=== PATIENT | male | born 1930 | race Caucasian/White ===

== ENCOUNTER 2017-10-03 22:05 | Emergency (ER) | payer OTHER, MEDICARE ==
[2017-10-03 22:15] VITALS: BMI 26.5
--- NOTE | 2017-10-03 22:24 | PDOC ---
History of Present Illness - General History Source: Patient, Spouse Exam Limitations: No Limitations - History of Present Illness Initial Comments: 10/03/17 22:42 The patient is an 86 year old male, accompanied by , with a past medical history HTN, CVA, mild dementia, and osteoarthritis, who presents to the ED today s/p unwitnessed mechanical fall. The patient was in the same room as his when he tripped and fell. As per , the patient was awake when she tended to his care but was unable to get up under his own strength. He states that he hit his head on the fall but denies nausea, vomiting , LOC, dizziness. He endorses taking aspirin, generalized left sided pain and right elbow pain. <Chance Valdez - Last Filed: 10/04/17 01:08> <Rob Flor - Last Filed: 10/04/17 01:41> - General Chief Complaint: Injury Stated Complaint: FALL Past History 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 History Cardiac Disorders: Yes CVA: Yes COPD: No HTN: Yes Other medical history: arthrtis, enlarged prostate - Surgical History Appendectomy: Yes - Suicide/Smoking/Psychosocial Hx Smoking History: Never smoked Have you smoked in the past 12 months: No Information on smoking cessation initiated: No Hx Alcohol Use: No Drug/Substance Use Hx: No Substance Use Type: None <Rob Flor - Last Filed: 10/04/17 01:41> Review of Systems - Review of Systems Able to Perform ROS?: Yes Comments:: 10/03/17 22:42 GENERAL/CONSTITUTIONAL: No fever or chills. (+) Weakness. HEAD, EYES, EARS, NOSE AND THROAT: No change in vision. No ear pain or discharge. No sore throat. CARDIOVASCULAR: No chest pain or shortness of breath. RESPIRATORY: No cough, wheezing, or hemoptysis. GASTROINTESTINAL: No nausea, vomiting, diarrhea or constipation. GENITOURINARY: No dysuria, frequency, or change in urination. MUSCULOSKELETAL: (+) Right elbow pain, left sided pain. No neck or back pain. SKIN: No rash NEUROLOGIC: No headache, vertigo, loss of consciousness, or change in strength/ sensation. ENDOCRINE: No increased thirst. No abnormal weight change. HEMATOLOGIC/LYMPHATIC: No anemia, easy bleeding, or history of blood clots. ALLERGIC/IMMUNOLOGIC: No hives or skin allergy. <Chance Valdez - Last Filed: 10/04/17 01:08> *Physical Exam - Vital Signs Last Vital Signs Temp Pulse Resp BP Pulse Ox 98.1 F 74 18 165/75 100 10/03/17 22:12 10/03/17 22:12 10/03/17 22:12 10/03/17 22:12 10/03/17 22:12 - Physical Exam Comments: 10/03/17 22:42 GENERAL: Awake, alert, and fully oriented, in no acute distress HEAD: No signs of trauma EYES: PERRLA, EOMI, sclera anicteric, conjunctiva clear ENT: Auricles normal inspection, hearing grossly normal, nares patent, oropharynx clear without exudates. Dry oral mucosa NECK: Normal ROM, supple, no lymphadenopathy, JVD, or masses LUNGS: Breath sounds equal, clear to auscultation bilaterally. No wheezes, and no crackles HEART: Regular rate and rhythm, normal S1 and S2, no murmurs, rubs or gallops ABDOMEN: Soft, nontender, normoactive bowel sounds. No guarding, no rebound. No masses EXTREMITIES: Normal range of motion, no edema. No clubbing or cyanosis. No cords, erythema, or tenderness NEUROLOGICAL: Cranial nerves II through XII grossly intact. Normal speech, normal gait SKIN: Warm, Dry, normal turgor, no rashes or lesions noted. <Chance Valdez - Last Filed: 10/04/17 01:08> - Vital Signs Last Vital Signs Temp Pulse Resp BP Pulse Ox 98.1 F 74 18 165/75 100 10/03/17 22:12 10/03/17 22:12 10/03/17 22:12 10/03/17 22:12 10/03/17 22:12 <Rob Flor - Last Filed: 10/04/17 01:41> Heart Score/ECG Review - ECG Impressions Comment:: 10/03/17 23:28 Normal sinus rhythm. Cannot rule out inferior infarct, age undetermined. Abnormal ECG. <Chance Valdez - Last Filed: 10/04/17 01:08> Medical Decision Making - Medical Decision Making 10/04/17 01:09 Further care of this patient endorsed to Dr. Russo. <Chance Valdez - Last Filed: 10/04/17 01:08> *DC/Admit/Observation/Transfer - Attestations Scribe Attestion: 10/03/17 22:42 Documentation prepared by Chance Valdez, acting as medical coding manager for Rob Flor DO. <Chance Valdez - Last Filed: 10/04/17 01:08> - Attestations Physician Attestion: 10/03/17 22:24 I, Dr. Rob Flor, attest that this document has been prepared under my direction and personally reviewed by me in its entirety. I further attest, that it accurately reflects all work, treatment, procedures and medical decision -making performed by me. <Rob Flor - Last Filed: 10/04/17 01:41> Diagnosis at time of Disposition: Fall Qualifiers: Encounter type: initial encounter Qualified Code(s): W19.XXXA - Unspecified fall, initial encounter - Referrals Referrals: Malissa Seaman MD [Primary Care Provider] -
[2017-10-03] MEDS ORDERED: SODIUM CHLORIDE 1,000 ML IV STA (22:38)
[2017-10-04 02:00] VITALS: BP 163/76; PULSE 64; TEMP 98.6
[2017-10-04 02:11] LABS: BASO % 0.5 % (0-2.0); EOS % 0.8 % (0-4.5); HEMATOCRIT 42.7 % (35.4-49); HEMOGLOBIN 14.2 GM/dL (11.7-16.9); MCHC 33.2 g/dl (32.0-35.9); MEAN CELL VOLUME 93.3 fl (80-96); MEAN PLT VOLUME 8.3 fl (7.5-11.1); MONO % 10.7 % (3.8-10.2); PLATELET COUNT 157 K/MM3 (134-434); RBC 4.57 M/mm3 (4.00-5.60); RDW 14.5 % (11.9-15.9); WHITE BLOOD COUNT 9.6 K/mm3 (4.0-10.0)
[2017-10-04 02:13] LABS: URINE APPEARANCE CLEAR; URINE BILIRUBIN NEGATIVE (NEGATIVE); URINE BLOOD 1+ (NEGATIVE); URINE COLOR STRAW; URINE GLUCOSE (UA) NEGATIVE (NEGATIVE); URINE KETONE TRACE (NEGATIVE); URINE LEUK ESTERASE NEGATIVE (NEGATIVE); URINE NITRITE NEGATIVE (NEGATIVE); URINE UROBILINOGEN NEGATIVE mg/dL (0.2-1.0)
[2017-10-04 02:18] LABS: URINE PROTEIN 2+ (NEGATIVE)
[2017-10-04 02:21] LABS: EPI CELLS RARE /HPF (FEW)
[2017-10-04 02:23] LABS: INR 1.04 (0.82-1.09); PROTHROMBIN TIME (PATIENT) 11.8 SEC (9.98-11.88)
[2017-10-04 02:38] LABS: ANION GAP 7 (8-16); BILIRUBIN,TOTAL 0.6 mg/dL (0.2-1.0); BLOOD UREA NITROGEN 23 mg/dL (7-18); CALCIUM 8.9 mg/dL (8.5-10.1); CHLORIDE 103 mmol/L (98-107); CO2 29 mmol/L (21-32); CREATININE 1.3 mg/dL (0.7-1.3); GLUCOSE,RANDOM 103 mg/dL (74-106); POTASSIUM 3.9 mmol/L (3.5-5.1); SGOT/AST 30 U/L (15-37); SGPT/ALT 30 U/L (12-78); SODIUM 139 mmol/L (136-145); TOT PROT 6.9 g/dl (6.4-8.2)
[2017-10-04 02:42] LABS: ALK PHOS 117 U/L (45-117); N-TERMINAL BNP 551.59 pg/ml (5-450)
--- NOTE | 2017-10-04 03:27 | PDOC ---
*Physical Exam - Vital Signs Last Vital Signs Temp Pulse Resp BP Pulse Ox 98.6 F 64 20 163/76 93 L 10/04/17 01:59 10/04/17 01:59 10/04/17 01:59 10/04/17 01:59 10/04/17 01:59 ED Treatment Course - LABORATORY CBC & Chemistry Diagram: 10/04/17 02:00 10/04/17 02:00 - ADDITIONAL ORDERS Additional order review: Laboratory Results 10/04/17 10/04/17 10/04/17 02:00 02:00 02:00 PT with INR 11.80 INR 1.04 Sodium 139 Potassium 3.9 Chloride 103 Carbon Dioxide 29 Anion Gap 7 L BUN 23 H Creatinine 1.3 Creat Clearance w eGFR 52.59 Random Glucose 103 Calcium 8.9 Total Bilirubin 0.6 AST 30 ALT 30 Alkaline Phosphatase 117 Creatine Kinase 120 Troponin I 0.02 B-Natriuretic Peptide 551.59 H Total Protein 6.9 Albumin 3.0 L Urine Color Straw Urine Appearance Clear Urine pH 7.0 Ur Specific [place] 1.005 Urine Protein 2+ H Urine Glucose (UA) Negative Urine Ketones Trace H Urine Blood 1+ H Urine Nitrite Negative Urine Bilirubin Negative Urine Urobilinogen Negative Urine WBC (Auto) 1 Urine RBC (Auto) 1 Ur Epithelial Cells Rare 10/04/17 02:00 RBC 4.57 MCV 93.3 MCHC 33.2 RDW 14.5 MPV 8.3 Neutrophils % 66.0 Lymphocytes % 22.0 Monocytes % 10.7 H Eosinophils % 0.8 Basophils % 0.5 Medical Decision Making - Medical Decision Making 10/04/17 03:52 Pt is feeling better and he is A+Ox3. He admits having extemity weakness, such that he has a hard time getting up from a sofa or the floor. So today when he lost his balance and fell, he accidentally pulled his down with him. She was able to get up, but pt was no, and his was unable to help him. The called for help at the building where they live, and EMS was called. Pt didn't want to come to the ER, but convinced him to come and get checked out. Pt has nomal labs and he was hydrated a bit. Pt has normal EKG and he is stable for discharge home. We will send him by ambulance as he is weak and cannot take a cab in the middle of the night. *DC/Admit/Observation/Transfer Diagnosis at time of Disposition: Fall Qualifiers: Encounter type: initial encounter Qualified Code(s): W19.XXXA - Unspecified fall, initial encounter - Discharge Dispostion Disposition: HOME Condition at time of disposition: Stable Admit: No - Referrals Referrals: Malissa Seaman MD [Primary Care Provider] - - Patient Instructions Printed Discharge Instructions: How to Prevent Falls - Post Discharge Activity
--- NOTE | 2017-10-04 10:57 | EKG ---
Test Reason : Blood Pressure : / mmHG Vent. Rate : 076 BPM Atrial Rate : 076 BPM P-R Int : 160 ms QRS Dur : 074 ms QT Int : 386 ms P-R-T Axes : 051 -07 063 degrees QTc Int : 434 ms NORMAL SINUS RHYTHM NONSPECIFIC T WAVE ABNORMALITY BORDERLINE ECG NO PREVIOUS ECGS AVAILABLE BASELINE ARTIFACT Confirmed by KETAN DUBON, JULIETA ([id number]) on 10/04/2017 10:57:29 AM Referred By: Confirmed By:JULIETA ACEVES MD
== END 2017-10-04 05:40 | disposition home or self-care (01) ==
LOC: JER 22:05
PROC: 3E0337Z Introduction of Electrolytic and Water Balance Substance into Peripheral Vein, Percutaneous Approach (ICD-10-PCS; principal; 2017-10-03)
DX: M25.521 Pain in right elbow (principal); W01.0XXA Fall on same level from slipping, tripping and stumbling without subsequent striking against object, initial encounter; Y93.89 Activity, other specified; Y92.038 Other place in apartment as the place of occurrence of the external cause; I10 Essential (primary) hypertension; F03.90 Unspecified dementia, unspecified severity, without behavioral disturbance, psychotic disturbance, mood disturbance, and anxiety; M19.90 Unspecified osteoarthritis, unspecified site; Z86.73 Personal history of transient ischemic attack (TIA), and cerebral infarction without residual deficits; Z79.82 Long term (current) use of aspirin
CPT/HCPCS: 36415; 70450-TC; 71010-TC; 80053; 81003; 81015; 82550; 83880; 84484; 85025; 85610; 93005; 93010; 99282-25

== ENCOUNTER 2017-11-12 09:46 | Inpatient (IN) | payer OTHER, MEDICARE ==
--- NOTE | 2017-11-12 10:34 | PDOC ---
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 The patients reports being in the kitchen with her this morning when the patient started to complain about feeling hot, dizzy, and very sweaty. The states she attempted to walk her to a chair, however, reports the patient started falling to the floor before making it to the chair. The reports guiding her to the ground and denies head strike or loss of consciousness. She states she was unable to get her up from the fall, prompting her to call ems. The states he began to feel better once he was placed in the ambulance. He denies any symptoms at this time. The patients denies any slurred speech, increased unilateral weakness, or facial asymmetry during the episode at home this morning. The patient states he was restarted on hydrochlorothiazide recently due to leg swelling. The patient states he has been feeling intermittently dizzy since starting the medication. The patient reportedly has an appointment with his PCP, Dr. Malissa Seaman, for this 11/14/17 to discuss changing medications. Allergies: NKDA " Past History 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 History Allergies/Adverse Reactions: Allergies Allergy/AdvReac Type Severity Reaction Status Date / Time No Known Allergies Allergy Verified 11/12/17 11:50 Home Medications: Ambulatory Orders NK [No Known Home Medication] 10/04/17 Cardiac Disorders: Yes CVA: Yes COPD: No HTN: Yes - Surgical History Appendectomy: Yes - Suicide/Smoking/Psychosocial Hx Smoking History: Never smoked Have you smoked in the past 12 months: No Information on smoking cessation initiated: No Hx Alcohol Use: No Drug/Substance Use Hx: No Substance Use Type: None Review of Systems - Review of Systems Comments:: 11/12/17 11:19 """GENERAL/CONSTITUTIONAL: (+) generalized weakness and near syncope. No fever or chills. HEAD, EYES, EARS, NOSE AND THROAT: No change in vision. No ear pain or discharge. No sore throat. CARDIOVASCULAR: (+) diaphoresis. No chest pain or shortness of breath. RESPIRATORY: No cough, wheezing, or hemoptysis. GASTROINTESTINAL: No nausea, vomiting, diarrhea or constipation. GENITOURINARY: No dysuria, frequency, or change in urination. MUSCULOSKELETAL: No joint or muscle swelling or pain. No neck or back pain. SKIN: No rash NEUROLOGIC: (+) dizziness.No headache, loss of consciousness, or change in strength/sensation. ENDOCRINE: No increased thirst. No abnormal weight change. HEMATOLOGIC/LYMPHATIC: No anemia, easy bleeding, or history of blood clots. ALLERGIC/IMMUNOLOGIC: No hives or skin allergy. """ *Physical Exam - Vital Signs Last Vital Signs Temp Pulse Resp BP Pulse Ox 97.1 F L 50 L 20 123/46 99 11/12/17 10:11/12/17 10:11/12/17 10:11/12/17 10:11/12/17 10:20 - Physical Exam Comments: 11/12/17 11:19 """GENERAL: Awake, alert, and fully oriented, in no acute distress HEAD: No signs of trauma EYES: PERRLA, EOMI, sclera anicteric, conjunctiva clear ENT: Auricles normal inspection, hearing grossly normal, nares patent, oropharynx clear without exudates. Moist mucosa NECK: Nontender, no stepoffs, Normal ROM, supple, no lymphadenopathy, JVD, or masses LUNGS: Breath sounds equal, clear to auscultation bilaterally. No wheezes, and no crackles HEART: Regular rate and rhythm, normal S1 and S2, no murmurs, rubs or gallops ABDOMEN: Soft, nontender, normoactive bowel sounds. No guarding, no rebound. No masses EXTREMITIES: Normal range of motion, no edema. No clubbing or cyanosis. No cords, erythema, or tenderness NEUROLOGICAL: Cranial nerves II through XII intact. 5/5 strength and sensation in all extremities, Normal speech, normal gait SKIN: Warm, Dry, normal turgor, no rashes or lesions noted. """ Heart Score/ECG Review - ECG Impressions Comment:: 11/12/17 10:29 NSR, no DEE/STDs, no TWIs, axis wnl, intervals wnl, rate 53 ED Treatment Course - LABORATORY CBC & Chemistry Diagram: 11/12/17 10:45 11/12/17 10:45 - ADDITIONAL ORDERS Additional order review: Laboratory Results 11/12/17 11/12/17 11/12/17 11:30 10:45 10:45 PT with INR 11.80 INR 1.04 PTT (Actin FS) 27.6 Sodium 142 Potassium 3.0 L D Chloride 106 Carbon Dioxide 30 Anion Gap 6 L BUN 26 H Creatinine 1.6 H D Creat Clearance w eGFR 41.39 Random Glucose 197 H D Calcium 8.0 L Total Bilirubin 0.5 AST 19 D ALT 21 D Alkaline Phosphatase 104 Creatine Kinase Troponin I B-Natriuretic Peptide Total Protein 6.3 L Albumin 2.7 L Urine Color Yellow Urine Appearance Clear Urine pH 5.0 D Ur Specific [place] 1.020 Urine Protein 2+ H Urine Glucose (UA) 2+ H Urine Ketones Negative Urine Blood 1+ H Urine Nitrite Negative Urine Bilirubin Negative Urine Urobilinogen Negative Ur Leukocyte Esterase Negative Urine WBC (Auto) 5 Urine RBC (Auto) 4 Hyaline Casts 7 Urine Mucus Rare 11/12/17 10:45 PT with INR INR PTT (Actin FS) Sodium Potassium Chloride Carbon Dioxide Anion Gap BUN Creatinine Creat Clearance w eGFR Random Glucose Calcium Total Bilirubin AST ALT Alkaline Phosphatase Creatine Kinase 119 Troponin I < 0.02 B-Natriuretic Peptide 347.53 Total Protein Albumin Urine Color Urine Appearance Urine pH Ur Specific [place] Urine Protein Urine Glucose (UA) Urine Ketones Urine Blood Urine Nitrite Urine Bilirubin Urine Urobilinogen Ur Leukocyte Esterase Urine WBC (Auto) Urine RBC (Auto) Hyaline Casts Urine Mucus 11/12/17 10:45 RBC 4.53 MCV 93.0 MCHC 32.2 RDW 14.1 MPV 7.9 Neutrophils % 75.0 Lymphocytes % 13.2 D Monocytes % 9.4 Eosinophils % 1.5 D Basophils % 0.9 - RADIOLOGY Radiology Studies Ordered: Category Date Time Status CHEST PA & LAT [RAD] Stat Radiology 11/12/17 10:27 Ordered - Medications Given in the ED: ED Medications Discontinued Medications Generic Name Dose Route Start Last Admin Trade Name Freq PRN Reason Stop Dose Admin Sodium Chloride 1,000 mls @ 1,000 mls/hr 11/12/17 12:29 11/12/17 12:44 Normal Saline - IV 11/12/17 13:28 1,000 mls/hr ASDIR STA Administration Potassium Chloride 40 meq 11/12/17 12:29 11/12/17 12:44 K-Dur - PO 11/12/17 12:30 40 meq ONCE ONE Administration Medical Decision Making - Medical Decision Making 11/12/17 10:30 86 M with pre-syncope. Pt with no s/s infectious process, afebrile with normal vitals at this time. EKG is NSR with no signs of ischemia. Pt with no external signs of trauma. Possibly medication-related, as he recently re-started HCTZ. However, pt has not taken it in 24 hours. - Labs, trop - CXR, UA - Tele monitoring *DC/Admit/Observation/Transfer Diagnosis at time of Disposition: Syncope - Discharge Dispostion Admit: Yes - Referrals Referrals: Malissa Seaman MD [Primary Care Provider] - - Patient Instructions - Post Discharge Activity - Attestations Physician Attestion: 11/12/17 13:40 I, Dr. Julito Zaman MD, attest that this document has been prepared under my direction and personally reviewed by me in its entirety. I further attest, that it accurately reflects all work, treatment, procedures and medical decision -making performed by me.
[2017-11-12 10:53] LABS: BASO % 0.9 % (0-2.0); EOS % 1.5 % (0-4.5); HEMATOCRIT 42.1 % (35.4-49); HEMOGLOBIN 13.6 GM/dL (11.7-16.9); LYMPH % 13.2 % (8-40); MCH 29.9 pg (25.7-33.7); MCHC 32.2 g/dl (32.0-35.9); MEAN PLT VOLUME 7.9 fl (7.5-11.1); MONO % 9.4 % (3.8-10.2); PLATELET COUNT 168 K/MM3 (134-434); RBC 4.53 M/mm3 (4.00-5.60); RDW 14.1 % (11.9-15.9); WHITE BLOOD COUNT 7.9 K/mm3 (4.0-10.0)
--- NOTE | 2017-11-12 10:57 | EKG ---
Test Reason : Blood Pressure : / mmHG Vent. Rate : 053 BPM Atrial Rate : 053 BPM P-R Int : 200 ms QRS Dur : 078 ms QT Int : 466 ms P-R-T Axes : 077 017 071 degrees QTc Int : 437 ms SINUS BRADYCARDIA OTHERWISE NORMAL ECG WHEN COMPARED WITH ECG OF 03-OCT-2017 23:17, MINIMAL CRITERIA FOR INFERIOR INFARCT ARE NO LONGER PRESENT Confirmed by CARMINE DUBON, DI ([id number]) on 11/12/2017 10:56:53 AM Referred By: Confirmed By:DI LOU MD
[2017-11-12 11:18] LABS: ALBUMIN 2.7 g/dl (3.4-5.0); ANION GAP 6 (8-16); BILIRUBIN,TOTAL 0.5 mg/dL (0.2-1.0); BLOOD UREA NITROGEN 26 mg/dL (7-18); CHLORIDE 106 mmol/L (98-107); CO2 30 mmol/L (21-32); CREATININE 1.6 mg/dL (0.7-1.3); GLUCOSE,RANDOM 197 mg/dL (74-106); SGOT/AST 19 U/L (15-37); SGPT/ALT 21 U/L (12-78); SODIUM 142 mmol/L (136-145); TOT PROT 6.3 g/dl (6.4-8.2)
[2017-11-12 11:19] LABS: ALK PHOS 104 U/L (45-117)
[2017-11-12 11:21] LABS: N-TERMINAL BNP 347.53 pg/ml (5-450)
[2017-11-12 12:14] LABS: INR 1.04 (0.82-1.09); PROTHROMBIN TIME (PATIENT) 11.8 SEC (9.98-11.88)
[2017-11-12 12:16] LABS: ACTIVATED PTT 27.6 SECONDS (26.9-34.4)
[2017-11-12] MEDS ORDERED: SODIUM CHLORIDE 1,000 ML IV STA (12:29)
[2017-11-12] MEDS ORDERED: POTASSIUM CHLORIDE TABS 20 MEQ TABLET.ER (FP) PO ONE ×2 (12:29→12:36)
[2017-11-12 12:38] LABS: URINE APPEARANCE CLEAR; URINE BILIRUBIN NEGATIVE (NEGATIVE); URINE BLOOD 1+ (NEGATIVE); URINE COLOR YELLOW; URINE GLUCOSE (UA) 2+ (NEGATIVE); URINE KETONE NEGATIVE (NEGATIVE); URINE LEUK ESTERASE NEGATIVE (NEGATIVE); URINE NITRITE NEGATIVE (NEGATIVE); URINE PROTEIN 2+ (NEGATIVE); URINE UROBILINOGEN NEGATIVE mg/dL (0.2-1.0)
[2017-11-12 12:46] LABS: URINE HYALINE CAST 7 /lpf; URINE MUCUS RARE
[2017-11-13 02:49] VITALS: BMI 20.6
[2017-11-13 07:31] LABS: HEMATOCRIT 41.5 % (35.4-49); HEMOGLOBIN 13.5 GM/dL (11.7-16.9); MCH 30.3 pg (25.7-33.7); MCHC 32.6 g/dl (32.0-35.9); MEAN CELL VOLUME 92.8 fl (80-96); MEAN PLT VOLUME 8.1 fl (7.5-11.1); PLATELET COUNT 175 K/MM3 (134-434); RBC 4.47 M/mm3 (4.00-5.60); RDW 14.2 % (11.9-15.9); WHITE BLOOD COUNT 9.1 K/mm3 (4.0-10.0)
--- NOTE | 2017-11-13 07:55 | HP ---
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 The patients reports being in the kitchen with her this morning when the patient started to complain about feeling hot, dizzy, and very sweaty. The states she attempted to walk her to a chair, however, reports the patient started falling to the floor before making it to the chair. The reports guiding her to the ground and denies head strike or loss of consciousness. She states she was unable to get her up from the fall, prompting her to call ems. The states he began to feel better once he was placed in the ambulance. He denies any symptoms at this time. The patients denies any slurred speech, increased unilateral weakness, or facial asymmetry during the episode at home this morning. The patient was restarted on hydrochlorothiazide due to leg swelling. The patient was seen a week later with weight loss of 8 lbs and significant resolution of leg edema. He reported less MONTANO / "ambulating a little better " / at 2 week follow up had lost total of 10lbs. Patient was scheduled back for follow up 11/14/17 to discuss medication management -- History Source: Patient, Significant Other Limitations to Obtaining History: Dementia (mild to moderate) 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 History PRESIDENT & CEO: Yes: CVA, Dementia Cardiovascular: Yes: HTN (however on no meds htn meds intermittently) - Smoking History Smoking history: Former smoker Have you smoked in the past 12 months: No - Alcohol/Substance Use Hx Alcohol Use: Yes - Social History Usual Living Arrangement: Yes: With Spouse, Other (independent living) ADL: Family Assistance History of Recent Travel: No Home Medications - Allergies Allergies/Adverse Reactions: Allergies Allergy/AdvReac Type Severity Reaction Status Date / Time No Known Allergies Allergy Verified 11/12/17 11:50 - Home Medications Home Medications: Ambulatory Orders NK [No Known Home Medication] 10/04/17 Review of Systems - Review of Systems Constitutional: denies: Chills, Diaphoresis, Fever, Loss of Appetite, Weakness Eyes: reports: No Symptoms, Floaters HENT: reports: No Symptoms Neck: reports: No Symptoms Cardiovascular: reports: Edema, Shortness of Breath. denies: Chest Pain Respiratory: reports: SOB on Exertion Gastrointestinal: reports: No Symptoms Genitourinary: reports: No Symptoms Breasts: reports: No Symptoms Reported Musculoskeletal: reports: Other (right hemiparesis) Integumentary: reports: Change in Color Neurological: reports: Pre-Existing Deficit Endocrine: reports: No Symptoms Hematology/Lymphatic: reports: No Symptoms Psychiatric: reports: No Symptoms Physical Examination Vital Signs: Vital Signs Temperature 97.2 F L 11/13/17 05:20 Pulse Rate 59 L 11/13/17 05:20 Respiratory Rate 20 11/13/17 05:20 Blood Pressure 135/61 11/13/17 05:20 O2 Sat by Pulse Oximetry (%) 96 11/13/17 03:02 Constitutional: Yes: Well Nourished, No Distress, Calm Eyes: Yes: Conjunctiva Clear, EOM Intact HENT: Yes: Atraumatic, Normocephalic Neck: Yes: Supple, Trachea Midline Cardiovascular: Yes: Regular Rate and Rhythm Respiratory: Yes: Regular, CTA Bilaterally Gastrointestinal: Yes: Normal Bowel Sounds, Soft ...Rectal Exam: Yes: Deferred Renal/: Yes: WNL Breast(s): Yes: WNL Musculoskeletal: Yes: WNL Extremities: Yes: Other (right hemiparesis) Edema: No Peripheral Pulses: Left Radial: 2+, Right Radial: 2+, Left Doralis Pedis: 2+, Right Dorsalis Pedis: 2+, Left Femoral: 2+, Right Femoral: 2+ Integumentary: Yes: WNL Neurological: Yes: Pre-Existing Deficit Psychiatric: Yes: Alert, Oriented Labs: CBC, BMP 11/13/17 05:23 Problem List - Problems (1) CVA, old, hemiparesis Code(s): I69.359 - HEMIPLGA FOLLOWING CEREBRAL INFARCTION AFFECTING UNSP SIDE (2) CVA, old, cognitive deficits Code(s): I69.319 - UNSP SYMPTOMS AND SIGNS W COGN FNCTNS FOL CEREBRAL INFRC (3) Hypokalemia due to loss of potassium Assessment/Plan: due to volume depletion had been on hctz for last 3 weeks ( previously used for HTN-- but had been discontinued ... 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
[2017-11-13 08:37] LABS: ANION GAP 9 (8-16); BLOOD UREA NITROGEN 25 mg/dL (7-18); CALCIUM 8.7 mg/dL (8.5-10.1); CHLORIDE 106 mmol/L (98-107); CO2 30 mmol/L (21-32); CREATININE 1.3 mg/dL (0.7-1.3); GLUCOSE,RANDOM 88 mg/dL (74-106); POTASSIUM 3.5 mmol/L (3.5-5.1); SODIUM 145 mmol/L (136-145)
[2017-11-13] MEDS ORDERED: POTASSIUM CHLORIDE TABS 20 MEQ TABLET.ER (FP) PO ONE (08:45)
[2017-11-13] MEDS ORDERED: ALPRAZolam 0.25 MG TABLET PO ONE (11:26)
[2017-11-13] MEDS ORDERED: traMADol HCL 50 MG TABLET PO PRN (11:30)
--- NOTE | 2017-11-13 11:52 | CON.CARD ---
Cardiology Consult (text) - Consultation Consultation Note: cc: presyncope hpi: 86 m hx htn, cva, mild dementia, venous insuff/le edema here after episode of presyncope at home. Had recently started hctz for le edema and after about a week his le edema improved but then he had episode yesterday of presyncope. Was standing in kitchen and felt weak, hot, sweaty, dizzy and tried to walk him to chair but his legs gave out and she helped him to floor. No LOC or trauma. No cp, sob, palps, pnd, orthopnea. No hx of such episodes. Feeling well today. pmh: per hpi psh: nc social: no tob use fam: no premature cad, scd ros: per hpi; no fever, gib, hematuria, dysuria, bella, vision changes, cough, nasal congestion, muscle pain meds: Home Medications Medication Instructions Recorded Alprazolam 0.25 mg PO PRN 11/13/17 Amlodipine Besylate 5 mg PO DAILY 11/13/17 Aspirin [ASA -] 81 mg PO DAILY 11/13/17 Atenolol [Tenormin -] 25 mg PO DAILY 11/13/17 Lisinopril [Prinivil -] 40 mg PO DAILY 11/13/17 Magnesium Hydroxide [Milk of PRN 11/13/17 Magnesia] Psyllium Husk [Metamucil] 660 gm PO PRN 11/13/17 Tramadol HCl 50 mg PO PRN 11/13/17 pe: Vital Signs Period Temp Pulse Resp BP Sys/Eng Pulse Ox Last 24 Hr 97.2 F-98.2 F 52-65 18-20 124-155/48-74 96-99 nad no jvd rrr s1s2 no mrg cta bl nl eff aaox3 no le e/c/c abd nt nd pos bs no carotid bruits, pos dp pt no jaundice diaphoresis Laboratory Last Values WBC 9.1 K/mm3 (4.0-10.0) 11/13/17 05:23 RBC 4.47 M/mm3 (4.00-5.60) 11/13/17 05:23 Hgb 13.5 GM/dL (11.7-16.9) 11/13/17 05:23 Hct 41.5 % (35.4-49) 11/13/17 05:23 MCV 92.8 fl (80-96) 11/13/17 05:23 MCH 30.3 pg (25.7-33.7) 11/13/17 05:23 MCHC 32.6 g/dl (32.0-35.9) 11/13/17 05:23 RDW 14.2 % (11.9-15.9) 11/13/17 05:23 Plt Count 175 K/MM3 (134-434) 11/13/17 05:23 MPV 8.1 fl (7.5-11.1) 11/13/17 05:23 Neutrophils % 75.0 % (42.8-82.8) 11/12/17 10:45 Lymphocytes % 13.2 % (8-40) D 11/12/17 10:45 Monocytes % 9.4 % (3.8-10.2) 11/12/17 10:45 Eosinophils % 1.5 % (0-4.5) D 11/12/17 10:45 Basophils % 0.9 % (0-2.0) 11/12/17 10:45 PT with INR 11.80 SEC (9.98-11.88) 11/12/17 10:45 INR 1.04 (0.82-1.09) 11/12/17 10:45 PTT (Actin FS) 27.6 SECONDS (26.9-34.4) 11/12/17 10:45 Sodium 145 mmol/L (136-145) 11/13/17 05:23 Potassium 3.5 mmol/L (3.5-5.1) 11/13/17 05:23 Chloride 106 mmol/L (98-107) 11/13/17 05:23 Carbon Dioxide 30 mmol/L (21-32) 11/13/17 05:23 Anion Gap 9 (8-16) 11/13/17 05:23 BUN 25 mg/dL (7-18) H 11/13/17 05:23 Creatinine 1.3 mg/dL (0.7-1.3) 11/13/17 05:23 Creat Clearance w eGFR 41.39 (>60) 11/12/17 10:45 Random Glucose 88 mg/dL (74-106) D 11/13/17 05:23 Calcium 8.7 mg/dL (8.5-10.1) 11/13/17 05:23 Magnesium 2.0 mg/dL (1.8-2.4) 11/13/17 05:23 Total Bilirubin 0.5 mg/dL (0.2-1.0) 11/12/17 10:45 AST 19 U/L (15-37) D 11/12/17 10:45 ALT 21 U/L (12-78) D 11/12/17 10:45 Alkaline Phosphatase 104 U/L (45-117) 11/12/17 10:45 Creatine Kinase 119 IU/L (39-308) 11/12/17 10:45 Troponin I < 0.02 ng/ml (0.00-0.05) 11/12/17 10:45 B-Natriuretic Peptide 347.53 pg/ml (5-450) 11/12/17 10:45 Total Protein 6.3 g/dl (6.4-8.2) L 11/12/17 10:45 Albumin 2.7 g/dl (3.4-5.0) L 11/12/17 10:45 Urine Color Yellow 11/12/17 11:30 Urine Appearance Clear 11/12/17 11:30 Urine pH 5.0 (5.0-8.0) D 11/12/17 11:30 Ur Specific Cisco 1.020 (1.001-1.035) 11/12/17 11:30 Urine Protein 2+ (NEGATIVE) H 11/12/17 11:30 Urine Glucose (UA) 2+ (NEGATIVE) H 11/12/17 11:30 Urine Ketones Negative (NEGATIVE) 11/12/17 11:30 Urine Blood 1+ (NEGATIVE) H 11/12/17 11:30 Urine Nitrite Negative (NEGATIVE) 11/12/17 11:30 Urine Bilirubin Negative (NEGATIVE) 11/12/17 11:30 Urine Urobilinogen Negative mg/dL (0.2-1.0) 11/12/17 11:30 Ur Leukocyte Esterase Negative (NEGATIVE) 11/12/17 11:30 Urine WBC (Auto) 5 /hpf (3-5) 11/12/17 11:30 Urine RBC (Auto) 4 /hpf (0-3) 11/12/17 11:30 Hyaline Casts 7 /lpf 11/12/17 11:30 Urine Mucus Rare 11/12/17 11:30 tele: sr cxr: clear lungs ecg: sr 53, nl intervals, no ischemic changes a/p: 86 m hx htn, cva, mild dementia, venous insuff/le edema here after episode of presyncope at home. presyncope: -sxs resolved -Here with marce, dehydration, likely cause of his symptoms -after ivfs cr improved, bp improved, no further sxs -ecg, tele, trop, bnp, all unremarkable. no indication of cardiac etiology -will check echo and ortho vitals -dc hctz as likely led to his vol depletion htn: -stable, monitor off meds venous insuff/le edema: -no le edema presently -improved with hctz but this led to dehydration. Thus would dc daily hctz and can use on a prn basis or qod marce: -likely due to hctz, improved after ivfs and holding hctz if echo and ortho vitals benign then ok for dc today from cardiac pov
[2017-11-13] MEDS: amLODIPine BESYLATE 5 MG TABLET (FP) PO SCH (13:36)
[2017-11-13] MEDS: ASPIRIN 81 MG CHEWABLE TABLETS PO SCH (13:36)
[2017-11-13] MEDS: ATENOLOL 25 MG TABLET (FP) PO SCH (13:36)
--- NOTE | 2017-11-13 15:11 | PN ---
Progress Note (short form) - Note Progress Note: Pt found sitting in chair. States that he feels better. Vital Signs Period Temp Pulse Resp BP Sys/Eng Pulse Ox Last 24 Hr 97.2 F-98.2 F 55-65 18-20 124-155/61-74 96-99 HEENT- Normocephalic Neck- Supple Lungs-CTAB Heart-S1/S2 Abd-Soft, NT Ext- +2 pitting edema rt LE Neg edema lt LE CBC, BMP 11/13/17 05:23 11/13/17 05:23 Active Medications Amlodipine Besylate (Norvasc -) 5 mg PO DAILY [facility] Last Admin: 11/13/17 13:36 Dose: 5 mg Aspirin (Asa -) 81 mg PO DAILY [facility] Last Admin: 11/13/17 13:36 Dose: 81 mg Atenolol (Tenormin -) 25 mg PO DAILY [facility] Last Admin: 11/13/17 13:36 Dose: 25 mg Lisinopril (Prinivil) 40 mg PO DAILY [facility] Tramadol HCl (Ultram -) 50 mg PO DAILY PRN PRN Reason: PAIN LEVEL 1 - 3 #Syncope Resolved #Hypokalemia Resolved #HTN BP stable Problem List - Problems (1) CVA, old, hemiparesis Code(s): I69.359 - HEMIPLGA FOLLOWING CEREBRAL INFARCTION AFFECTING UNSP SIDE (2) CVA, old, cognitive deficits Code(s): I69.319 - UNSP SYMPTOMS AND SIGNS W COGN FNCTNS FOL CEREBRAL INFRC (3) Hypokalemia due to loss of potassium Assessment/Plan: POtassium Level Normal had been on hctz for last 3 weeks ( previously used for HTN-- but had been discontinued ... 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
--- NOTE | 2017-11-13 16:45 | CON.NEURO ---
Consult - History of Present Illness History of Present Illness: 86 year old male, accompanied by , with a past medical history HTN, CVA ( 1979 with residual right sided weakness), mild dementia, and osteoarthritis, who presents to the ED today via ems for near-syncopal episode at home this morning. The patients reports being in the kitchen with her this morning when the patient started to complain about feeling hot, dizzy, and very sweaty. The states she attempted to walk her to a chair, however, reports the patient started falling to the floor before making it to the chair. The reports guiding her to the ground and denies head strike or loss of consciousness. She states she was unable to get her up from the fall, prompting her to call ems. told BP wasd low , though number not given. sttaes started on diuretic a week earlier for LE edema--frequnet urination on RX and reports had to get up out of bed fast. HX of stroke --residual R hemiparesis. NO BULLOCK, no other focal c/o. NO HX of seizure. CT HD : Since 10/03/2017, there remains generalized volume loss with moderate ventricular dilatation and periventricular chronic microvascular ischemic changes. No mass lesion, gross acute infarct or intracranial hemorrhage are identified. There is no shift of the midline structures Visualized paranasal sinuses and mastoid air cells are well aerated. Calcification of the cavernous carotid arteries are present. 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 Cardio/Vascular: Yes: HTN (however on no meds htn meds intermittently) - Alcohol/Substance Use Hx Alcohol Use: Yes - Smoking History Smoking history: Former smoker Have you smoked in the past 12 months: No - Social History ADL: Family Assistance History of Recent Travel: No Home Medications - Allergies Allergies/Adverse Reactions: Allergies Allergy/AdvReac Type Severity Reaction Status Date / Time Penicillins Allergy Swelling Verified 11/13/17 10:39 - Home Medications Home Medications: Ambulatory Orders Alprazolam 0.25 mg PO PRN 11/13/17 Amlodipine Besylate 5 mg PO DAILY 11/13/17 Aspirin [ASA -] 81 mg PO DAILY 11/13/17 Atenolol [Tenormin -] 25 mg PO DAILY 11/13/17 Lisinopril [Prinivil -] 40 mg PO DAILY 11/13/17 Magnesium Hydroxide [Milk of Magnesia] PRN 11/13/17 Psyllium Husk [Metamucil] 660 gm PO PRN 11/13/17 Tramadol HCl 50 mg PO PRN 11/13/17 Physical Exam-Neuro Vital Signs: Vital Signs Temperature 98.4 F 11/13/17 14:10 Pulse Rate 56 L 11/13/17 14:10 Respiratory Rate 20 11/13/17 14:10 Blood Pressure 148/58 11/13/17 14:10 O2 Sat by Pulse Oximetry (%) 96 11/13/17 09:00 Constitutional: Yes: Well Nourished, No Distress Labs: CBC, BMP 11/13/17 05:23 11/13/17 05:23 INR, PTT INR 1.04 (0.82-1.09) 11/12/17 10:45 - Neuro Exam Level Of Consciousness: Yes: Alert (awake, alert, EOMI, VFF, R hemiparesis 4/5, reflexes R >L) Imaging - Results Cat Scan: Report Reviewed, Image Reviewed Problem List - Problems (1) CVA, old, hemiparesis Code(s): I69.359 - HEMIPLGA FOLLOWING CEREBRAL INFARCTION AFFECTING UNSP SIDE (2) Edema leg Code(s): R60.0 - LOCALIZED EDEMA (3) Syncope Code(s): R55 - SYNCOPE AND COLLAPSE (4) Fall Code(s): W19.XXXA - UNSPECIFIED FALL, INITIAL ENCOUNTER Qualifiers: Encounter type: initial encounter Qualified Code(s): W19.XXXA - Unspecified fall, initial encounter Assessment/Plan 86 year old male, accompanied by , with a past medical history HTN, CVA ( 1979 with residual right sided weakness), mild dementia, and osteoarthritis, who presents to the ED 11/12/17 via ems for near-syncopal episode --suspect hypotensive /diuretic effect--no evidence of a new vascular event or seizure. GIven prior hx of stroke and told to have a "plaque" -check carotid dopplers cont BP RX , consider adding low dose statin thanks Dr Obregon
[2017-11-13] MEDS: POTASSIUM CHLORIDE TABS 20 MEQ TABLET.ER (FP) PO ONE ×2 (21:42→22:06)
[2017-11-13] MEDS ORDERED: ALPRAZolam 0.25 MG TABLET PO PRN (22:07)
[2017-11-14 07:55] LABS: ANION GAP 7 (8-16); BLOOD UREA NITROGEN 25 mg/dL (7-18); CHLORIDE 109 mmol/L (98-107); CO2 28 mmol/L (21-32); CREATININE 1.2 mg/dL (0.7-1.3); GLUCOSE,RANDOM 87 mg/dL (74-106); MAGNESIUM 1.9 mg/dL (1.8-2.4); POTASSIUM 3.7 mmol/L (3.5-5.1); SODIUM 144 mmol/L (136-145)
[2017-11-14 08:33] LABS: BASO % 0.9 % (0-2.0); EOS % 2.5 % (0-4.5); HEMATOCRIT 38.4 % (35.4-49); HEMOGLOBIN 12.5 GM/dL (11.7-16.9); LYMPH % 27.9 % (8-40); MCH 30.2 pg (25.7-33.7); MCHC 32.6 g/dl (32.0-35.9); MEAN CELL VOLUME 92.5 fl (80-96); MEAN PLT VOLUME 8.1 fl (7.5-11.1); MONO % 13.6 % (3.8-10.2); NEUT % 55.1 % (42.8-82.8); PLATELET COUNT 153 K/MM3 (134-434); RBC 4.15 M/mm3 (4.00-5.60); RDW 14.1 % (11.9-15.9); WHITE BLOOD COUNT 8.1 K/mm3 (4.0-10.0)
--- NOTE | 2017-11-14 08:54 | CON.NEURO ---
Consult Reason for Consultation:: 86 year old male, accompanied by , with a past medical history HTN, CVA (1979 with residual right sided weakness), mild dementia, and osteoarthritis, who presents to the ED 11/12/17 via ems for near- syncopal episode --suspect hypotensive /diuretic effect--no evidence of a new vascular event or seizure. GIven prior hx of stroke and told to have a "plaque " -check carotid dopplers. cont BP RX , consider adding low dose statin. thanks. 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 Cardio/Vascular: Yes: HTN (however on no meds htn meds intermittently) - Alcohol/Substance Use Hx Alcohol Use: Yes - Smoking History Smoking history: Former smoker Have you smoked in the past 12 months: No - Social History ADL: Family Assistance History of Recent Travel: No Home Medications - Allergies Allergies/Adverse Reactions: Allergies Allergy/AdvReac Type Severity Reaction Status Date / Time Penicillins Allergy Swelling Verified 11/13/17 10:39 - Home Medications Home Medications: Ambulatory Orders Alprazolam 0.25 mg PO PRN 11/13/17 Amlodipine Besylate 5 mg PO DAILY 11/13/17 Aspirin [ASA -] 81 mg PO DAILY 11/13/17 Atenolol [Tenormin -] 25 mg PO DAILY 11/13/17 Lisinopril [Prinivil -] 40 mg PO DAILY 11/13/17 Magnesium Hydroxide [Milk of Magnesia] PRN 11/13/17 Psyllium Husk [Metamucil] 660 gm PO PRN 11/13/17 Tramadol HCl 50 mg PO PRN 11/13/17 Physical Exam-Neuro Vital Signs: Vital Signs Temperature 98.6 F 11/13/17 21:00 Pulse Rate 56 L 11/13/17 21:00 Respiratory Rate 18 11/13/17 21:00 Blood Pressure 142/63 11/13/17 21:00 O2 Sat by Pulse Oximetry (%) 96 11/13/17 21:00 Labs: CBC, BMP 11/14/17 06:20 11/14/17 06:20 INR, PTT INR 1.04 (0.82-1.09) 11/12/17 10:45
[2017-11-14] MEDS: ASPIRIN 81 MG CHEWABLE TABLETS PO SCH (09:19)
[2017-11-14] MEDS: ALPRAZolam 0.25 MG TABLET PO ONE ×2 (09:19→10:20)
[2017-11-14] MEDS: ATENOLOL 25 MG TABLET (FP) PO SCH (09:19)
[2017-11-14] MEDS: amLODIPine BESYLATE 5 MG TABLET (FP) PO SCH (09:19)
--- NOTE | 2017-11-14 09:42 | DS ---
Physical Examination Vital Signs: Vital Signs Temperature 98.6 F 11/13/17 21:00 Pulse Rate 56 L 11/13/17 21:00 Respiratory Rate 18 11/13/17 21:00 Blood Pressure 142/63 11/13/17 21:00 O2 Sat by Pulse Oximetry (%) 96 11/13/17 21:00 Findings/Remarks: Consult Reason for Consultation:: 86 year old male, accompanied by , with a past medical history HTN, CVA (1980 with residual right sided weakness), mild dementia, and osteoarthritis, who presents to the ED 11/12/17 via ems for near- syncopal episode --suspect hypotensive /diuretic effect--no evidence of a new vascular event or seizure. Discussed with - as patient has poor recall. Constitutional: Yes: Well Nourished, Anxious Eyes: Yes: Conjunctiva Clear, EOM Intact HENT: Yes: WNL, Atraumatic, Normocephalic Neck: Yes: WNL, Supple, Trachea Midline Cardiovascular: Yes: Regular Rate and Rhythm Gastrointestinal: Yes: Normal Bowel Sounds, Soft ...Rectal Exam: Yes: WNL, Deferred Renal/: Yes: WNL Breast(s): Yes: WNL Musculoskeletal: Yes: Muscle Weakness (right sided residual from CVA) Edema: No Peripheral Pulses: Left Radial: 2+, Right Radial: 2+, Left Doralis Pedis: 2+, Right Dorsalis Pedis: 2+, Left Femoral: 2+, Right Femoral: 2+ Integumentary: Yes: WNL Neurological: Yes: Alert, Oriented, Pre-Existing Deficit, Unsteady Gait Psychiatric: Yes: Alert, Oriented, Agitated Labs: CBC, BMP 11/14/17 06:20 11/14/17 06:20 Discharge Summary Reason For Visit: SYNCOPE Current Active Problems CVA, old, cognitive deficits (Acute) CVA, old, hemiparesis (Acute) Edema leg (Acute) Hypertension (Acute) Hypokalemia due to loss of potassium (Acute) Syncope (Acute) - Instructions Referrals: Malissa Seaman MD [Primary Care Provider] - - Home Medications Comprehensive Discharge Medication List: Ambulatory Orders Alprazolam 0.25 mg PO PRN 11/13/17 Amlodipine Besylate 5 mg PO DAILY 11/13/17 Aspirin [ASA -] 81 mg PO DAILY 11/13/17 Atenolol [Tenormin -] 25 mg PO DAILY 11/13/17 Lisinopril [Prinivil -] 40 mg PO DAILY 11/13/17 Magnesium Hydroxide [Milk of Magnesia] PRN 11/13/17 Psyllium Husk [Metamucil] 660 gm PO PRN 11/13/17 Tramadol HCl 50 mg PO PRN 11/13/17
[2017-11-14] MEDS ORDERED: LISINOPRIL 20 MG TABLET (FP) PO SCH (10:00)
[2017-11-14 10:36] VITALS: BP 140/78; PULSE 65; TEMP 98.2
--- NOTE | 2017-11-14 11:08 | PN ---
Progress Note (short form) - Note Progress Note: s: feeling well, wants to go home. no cp sob palps dizzy o: Vital Signs Period Temp Pulse Resp BP Sys/Eng Pulse Ox Last 24 Hr 97.3 F-98.6 F 49-65 18-20 140-148/58-78 96-98 nad no jvd rrr s1s2 no mrg cta bl nl eff aaox3 no le e/c/c abd nt nd pos bs no jaundice diaphoresis Current Medications Generic Name Dose Route Start Last Admin Trade Name Freq PRN Reason Stop Dose Admin Alprazolam 0.5 mg 11/13/17 22:07 11/13/17 23:30 Xanax - PO 0.5 mg Q2H PRN Administration ANXIETY Amlodipine Besylate 5 mg 11/13/17 11:30 11/14/17 09:19 Norvasc - PO 5 mg DAILY [facility] Administration Aspirin 81 mg 11/13/17 12:45 11/14/17 09:19 Asa - PO 81 mg DAILY [facility] Administration Atenolol 25 mg 11/13/17 12:45 11/14/17 09:19 Tenormin - PO 25 mg DAILY [facility] Administration Lisinopril 40 mg 11/14/17 10:00 11/14/17 10:00 Prinivil PO Not Given DAILY [facility] Tramadol HCl 50 mg 11/13/17 11:30 Ultram - PO DAILY PRN PAIN LEVEL 1 - 3 CBC, BMP 11/14/17 06:20 11/14/17 06:20 tele: sr echo 11/2017: nl lv/rv, no sig valve path, nl rvsp cxr: clear lungs ecg: sr 53, nl intervals, no ischemic changes a/p: 86 m hx htn, cva, mild dementia, venous insuff/le edema here after episode of presyncope at home. presyncope: -sxs resolved -Here with marce, dehydration, likely cause of his symptoms -after ivfs cr improved, bp improved, no further sxs -ecg, echo, tele, trop, bnp, all unremarkable. no indication of cardiac etiology -dc hctz as likely led to his vol depletion htn: -stable on current meds venous insuff/le edema: -no le edema presently -improved with hctz but this led to dehydration. Thus would dc daily hctz and can use on a prn basis or qod marce: -likely due to hctz, improved after ivfs and holding hctz ok for dc today from cardiac pov
== END 2017-11-14 14:24 | disposition home or self-care (01) | DRG 683 ==
LOC: JER 09:46 → SUPCPDRO 09:46 → JERBED 13:41 → J4W 11-13 01:59 → OBSVTOIN 11-13 08:15
PROVIDERS: ADMIT Family Medicine; ATTEND Family Medicine
DX: N17.9 Acute kidney failure, unspecified (principal); I69.359 Hemiplegia and hemiparesis following cerebral infarction affecting unspecified side; I69.319 Unspecified symptoms and signs involving cognitive functions following cerebral infarction; F03.90 Unspecified dementia, unspecified severity, without behavioral disturbance, psychotic disturbance, mood disturbance, and anxiety; E87.6 Hypokalemia; I10 Essential (primary) hypertension; R60.0 Localized edema; T50.2X5A Adverse effect of carbonic-anhydrase inhibitors, benzothiadiazides and other diuretics, initial encounter; W18.39XA Other fall on same level, initial encounter; Y92.090 Kitchen in other non-institutional residence as the place of occurrence of the external cause; Y99.8 Other external cause status; I87.2 Venous insufficiency (chronic) (peripheral); M19.90 Unspecified osteoarthritis, unspecified site; E86.0 Dehydration; Z87.891 Personal history of nicotine dependence
CPT/HCPCS: 36415; 70450-TC; 71046-TC-FY; 80048; 80053; 81003; 81015; 82550; 83735; 83880; 84484; 85025; 85027; 85610; 85730; 93005; 93010; 93306-TC; 97116-GP; 97161-GP; 99285-25; G0378

== ENCOUNTER 2018-01-06 08:52 | Day surgery (SDC) | payer OTHER, MEDICARE ==
[2018-01-05 15:25] VITALS: BMI 22.8
[2018-01-06 09:44] VITALS: TEMP 98.4
[2018-01-06] MEDS ORDERED: PROPOFOL 20 ML ONE (10:06)
[2018-01-06] MEDS ORDERED: LIDOCAINE HCL 2% (20ML MULTI-DOSE VIAL) NR ONE (10:06)
[2018-01-06 11:41] VITALS: BP 118/67; PULSE 60
--- NOTE | 2018-01-07 16:08 | PATH ---
Surgical Pathology Report Patient Name: ROM LAURENT [facility]. Rec. #: [id number] /Age/Gender: 1930 (Age: 87) / M Account: [id number] Location: [facility]-ENDOSCOPY Taken: 01/06/2018 Received: 01/06/2018 Reported: 01/07/2018 Physicians: Alessandro Lopez M.D. Specimen(s) Received BX TUMOR CARDIA/DISTAL ESOPHAGUS Clinical History Preoperative diagnosis: Dysphagia, weight loss, anemia Postoperative diagnosis: Tumor cardia Final Diagnosis CARDIA/DISTAL ESOPHAGUS, BIOPSY: POORLY DIFFERENTIATED ADENOCARCINOMA. Comment: Immunohistochemical stains performed and interpreted at [facility] show the following results: Neoplastic cells focally stain for CK20, and do not stain with CK7 or P63. MisMatch Repair Protein analysis by immunohistochemistry and assays for HER-2 are pending, and a report will follow. This case was initially discussed with Cheryl Bob RN of Dr. Lopez's office on January 07, 2018. Electronically Signed Ilan Pierre M.D. Addendum Reported: 01/08/2018 Addendum Diagnosis Results of Her2 (IHC) studies performed at [place], [place] ([id number]) are as follows: Her2 IHC (EP3 from [employer], formerly known as [id number], using [employer] Polymer Refine detection kit): 0 Negative Immunohistochemical stains for MisMatch Repair Protein Analysis performed at [facility] in [place], [place] ([id number]) and interpreted at [facility] show the following: RESULTS: HMLH-1 INTACT NUCLEAR EXPRESSION HMSH-2 INTACT NUCLEAR EXPRESSION HMSH-6 INTACT NUCLEAR EXPRESSION PMS2 INTACT NUCLEAR EXPRESSION INTERPRETATION: No loss of nuclear expression of MMR proteins: low probability of microsatellite instability-high (MSI-H) Ilan Pierre M.D. Addendum Reported: 01/09/2018 Addendum Diagnosis PD-L1 ([employer]truda) IHC, Clone 22C3 Pharm DX performed and interpreted at [place], [place] ([id number]) shows the following: RESULT: PD-L1 (Keytruda) CPS: 5 (PD-L1 Expression) Reference Range: CPS=Combined Positive Score ((#PD-L1 staining cells including tumor cells, lymphocytes and macrophages)/(Total # of viable tumor cells)) x 100 CPS <1 = No PD-L1 Expression CPS >= 1 up to maximum of 100: PD-L1 expression Ilan Pierre M.D. Gross Description Received in formalin labeled "biopsy tumor cardia/distal esophagus," is a 0.7 x 0.6 x 0.2 cm aggregate of noguera soft tissue fragments. The formalin is filtered and the specimen is entirely submitted in one cassette. 01/06/201801/06/2018
== END 2018-01-06 12:07 | disposition home or self-care (01) ==
LOC: JASU-ENDO 08:52
PROVIDERS: ATTEND Internal Medicine Gastroenterology
PROC: 0DB68ZX Excision of Stomach, Via Natural or Artificial Opening Endoscopic, Diagnostic (ICD-10-PCS; 2018-01-06)
PROC: 0DB48ZX Excision of Esophagogastric Junction, Via Natural or Artificial Opening Endoscopic, Diagnostic (ICD-10-PCS; principal; 2018-01-06 10:00)
DX: C16.0 Malignant neoplasm of cardia (principal); K29.80 Duodenitis without bleeding
CPT/HCPCS: 88305-TC; 88341-TC; 88342-TC

== ENCOUNTER 2018-01-19 08:57 | Inpatient (IN) | payer OTHER, MEDICARE ==
[2018-01-19 09:03] VITALS: BMI 21.9
[2018-01-19 09:24] LABS: EOS % 1.1 % (0-4.5); HEMATOCRIT 36.7 % (35.4-49); HEMOGLOBIN 12.3 GM/dL (11.7-16.9); LYMPH % 22.5 % (8-40); MCH 30.7 pg (25.7-33.7); MCHC 33.5 g/dl (32.0-35.9); MEAN CELL VOLUME 91.6 fl (80-96); MEAN PLT VOLUME 7.1 fl (7.5-11.1); MONO % 13.9 % (3.8-10.2); NEUT % 61.5 % (42.8-82.8); PLATELET COUNT 215 K/MM3 (134-434); RBC 4.01 M/mm3 (4.00-5.60); RDW 14.3 % (11.9-15.9); WHITE BLOOD COUNT 8.4 K/mm3 (4.0-10.0)
[2018-01-19 09:36] LABS: INR 1.04 (0.82-1.09); PROTHROMBIN TIME (PATIENT) 11.8 SEC (9.98-11.88)
[2018-01-19 09:50] LABS: ALBUMIN 2.8 g/dl (3.4-5.0); ANION GAP 4 (8-16); BILIRUBIN,TOTAL 0.4 mg/dL (0.2-1.0); BLOOD UREA NITROGEN 20 mg/dL (7-18); CALCIUM 7.9 mg/dL (8.5-10.1); CHLORIDE 108 mmol/L (98-107); CO2 28 mmol/L (21-32); CREATININE 1.4 mg/dL (0.7-1.3); GLUCOSE,RANDOM 112 mg/dL (74-106); POTASSIUM 3.7 mmol/L (3.5-5.1); SGOT/AST 23 U/L (15-37); SGPT/ALT 18 U/L (12-78); SODIUM 140 mmol/L (136-145); TOT PROT 7.1 g/dl (6.4-8.2)
[2018-01-19] MEDS: SODIUM CHLORIDE 1,000 ML IV SCH (09:50)
[2018-01-19 09:53] LABS: ALK PHOS 104 U/L (45-117)
--- NOTE | 2018-01-19 09:56 | PDOC ---
History of Present Illness <Barbara Giraldo - Last Filed: 01/19/18 10:54> - General History Source: Patient Exam Limitations: No Limitations - History of Present Illness Initial Comments: 01/19/18 09:59 87 m hx htn, cva in 1979, esophageal cancer, mild dementia, venous insuff, le edema here for difficulty speaking since waking up at 5am this morning,. Patient and state that he's been having difficulty speaking and finding words. Patient refused to get to go to the hospital at first but as his speech worsened he relented. He managed to communicate to us that he and his were singing in the car on the way here. Patient admits to have recently stopped taking his aspirin. 01/19/18 10:29 01/19/18 10:33 <Tigre Olivas - Last Filed: 01/19/18 11:05> - General Chief Complaint: CVA/TIA Stated Complaint: SLURRED SPEECH Time Seen by Provider: 01/19/18 09:16 Past History <Barbara Giraldo - Last Filed: 01/19/18 10:54> 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 History Anemia: No Asthma: No Cancer: Yes (esophageal vs stomach) Cardiac Disorders: No CVA: Yes COPD: No CHF: No Dementia: No Diabetes: No GI Disorders: No Disorders: No HTN: Yes Hypercholesterolemia: No Liver Disease: No Seizures: No Thyroid Disease: No Other medical history: PAD, - Surgical History Appendectomy: Yes Cardiac Surgery: No Cholecystectomy: Yes Lung Surgery: No Neurologic Surgery: No Orthopedic Surgery: Yes (ARTHROSCOPY) - Immunization History Immunization Up to Date: No - Suicide/Smoking/Psychosocial Hx Smoking History: Former smoker Have you smoked in the past 12 months: No If you are a former smoker, when did you quit?: 2012 Information on smoking cessation initiated: No Hx Alcohol Use: No Drug/Substance Use Hx: No Substance Use Type: None Hx Substance Use Treatment: No <Tigre Olivas - Last Filed: 01/19/18 11:05> 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 History Allergies/Adverse Reactions: Allergies Allergy/AdvReac Type Severity Reaction Status Date / Time Penicillins Allergy Swelling Verified 01/19/18 09:00 Home Medications: Ambulatory Orders Alprazolam 0.25 mg PO PRN 11/13/17 Amlodipine Besylate 5 mg PO DAILY 11/13/17 Lisinopril [Prinivil -] 40 mg PO DAILY 11/13/17 Atenolol [Tenormin -] 25 mg PO DAILY tablet 11/14/17 Donepezil HCl [Aricept] 10 mg PO DAILY 01/05/18 Finasteride [Proscar -] 5 mg PO DAILY 01/05/18 Hydrochlorothiazide 25 mg PO ASDIR 01/05/18 Magnesium Hydrox 2400MG/30Ml [Milk of Magnesia -] 30 ml PO ASDIR 01/05/18 Psyllium Husk (with Sugar) [Metamucil Packet] 1 pack PO BID 01/05/18 Tamsulosin HCl [Flomax] 0.4 mg PO DAILY 01/05/18 Review of Systems - Review of Systems Able to Perform ROS?: No (aphasia) <Tigre Olivas - Last Filed: 01/19/18 11:05> *Physical Exam - Vital Signs Last Vital Signs Temp Pulse Resp BP Pulse Ox 98.0 F 75 18 169/73 96 01/19/18 09:00 01/19/18 10:48 01/19/18 10:48 01/19/18 10:48 01/19/18 10:48 <Barbara Giraldo - Last Filed: 01/19/18 10:54> - Vital Signs Last Vital Signs Temp Pulse Resp BP Pulse Ox 98.0 F 59 L 18 160/78 99 01/19/18 09:00 01/19/18 09:00 01/19/18 09:00 01/19/18 09:00 01/19/18 09:44 - Physical Exam General Appearance: Yes: Nourished, Appropriately Dressed, Mild Distress HEENT: positive: EOMI, IZAIAH, Normal ENT Inspection Neck: negative: Tender Respiratory/Chest: positive: Accessory Muscle Use. negative: Chest Tender Cardiovascular: positive: Regular Rhythm, S1, S2, Bradycardia Gastrointestinal/Abdominal: positive: Normal Bowel Sounds, Flat, Soft. negative : Tender Musculoskeletal: positive: Normal Inspection Extremity: positive: Normal Capillary Refill, Normal Inspection, Normal Range of Motion Integumentary: positive: Normal Color, Dry, Warm Neurologic: positive: Fully Oriented, Alert, Other (expressive aphasia) <Tigre Olivas - Last Filed: 01/19/18 11:05> NIH Stroke Scale - Initial Evaluation Level of consciousness: Alert Ask patient the month and their age: Answers both correctly Ask patient to open & close eyes; make fist and let go: Obeys both correctly Best gaze (horizontal eye movement): Normal Visual field testing: No visual field loss Facial paresis (Show teeth/raise eyebrows/close eyes tight): Normal symmetrical movement Motor Function: Left Arm: Normal Motor Function: Right Arm: Normal (extends arm 90 (or 45) degrees for 10 seconds without drift Motor Function: Left Leg: Normal (extends leg 30 degrees for 5 seconds without drift) Motor Function: Right Leg: Normal (extends leg 30 degrees for 5 seconds without drift) Limb Ataxia: No ataxia Sensory(Use pinprick test arms,legs,trunk,face/side to side): Normal Best language (Describe picture, name items, read sentences): Severe aphasia Dysarthria (read several words): Mild to moderate slurring of words Extinction and Inattention: No abnormality - Total Score NIH Stroke Scale Score: 3 <Tigre Olivas - Last Filed: 01/19/18 11:05> Critical Care Time/MDM Note - Medical Decision Making Note: Dr. Seaman called back at 10:43. <Barbara Giraldo - Last Filed: 01/19/18 10:54> - Medical Decision Making Note: 87M with pmh of esophageal cancer hx htn, cva, mild dementia, venous insuff/le edema presents after CVA since 5 AM. This presentation, consistent with CVA is post 4 and a half hours after onset. We will draw labs, EKG and CT head with neurology consult. Probable admission to stroke floor for MRI Called Jurgen Alvarez who admitted the patient. <Tigre Olivas - Last Filed: 01/19/18 11:05> Discharge Disposition <Barbara Giraldo - Last Filed: 01/19/18 10:54> - Discharge Dispostion Last Admission D/C Date: 11/14/17 Admit: Yes <Tigre Olivas - Last Filed: 01/19/18 11:05> - Diagnosis Cerebrovascular accident (CVA), Broca's dysphasia - Referrals Referrals: Malissa Seaman MD [Primary Care Provider] -
[2018-01-19 10:04] LABS: URINE APPEARANCE CLEAR; URINE BILIRUBIN NEGATIVE (<2.0 mg/dL); URINE COLOR STRAW; URINE GLUCOSE (UA) NEGATIVE (NEGATIVE); URINE KETONE NEGATIVE (NEGATIVE); URINE LEUK ESTERASE NEGATIVE (NEGATIVE); URINE NITRITE NEGATIVE (NEGATIVE); URINE UROBILINOGEN NEGATIVE mg/dL (0.2-1.0)
[2018-01-19 10:05] LABS: URINE PROTEIN 2+ (NEGATIVE)
[2018-01-19 10:07] LABS: EPI CELLS RARE /HPF (FEW)
--- NOTE | 2018-01-19 10:31 | PDOC ---
Attending Attestation - Resident Resident Name: Tigre Olivas - ED Attending Attestation I have performed the following: I have examined & evaluated the patient, The case was reviewed & discussed with the resident, I agree w/resident's findings & plan, Exceptions are as noted - HPI HPI: 01/19/18 10:54 87 year old male c/ hx of HTN, PAD, HLD, CVA, esophageal ca, dementia p/w expressive aphasia. The patient went to bed yesterday at 10 pm in his usual state of health. Woke up at 5 am with slurring of speech and expressive aphasia. Denies chest pain or shortness of breath. Pt accompanied by . Pt has had very mild R sided neuro deficit (chronic). Normally speaks without slurring or aphasia. Came into the ED. Pt outside the window for TPA. - Physicial Exam PE: 01/19/18 10:57 GENERAL: Awake, alert, and fully oriented, in no acute distress. HEAD: No signs of trauma EYES: PERRLA, EOMI, sclera anicteric, conjunctiva clear ENT: Auricles normal inspection, hearing grossly normal, nares patent NECK: Normal ROM, supple LUNGS: Breath sounds equal, clear to auscultation bilaterally. No wheezes, and no crackles HEART: Regular rate and rhythm, normal S1 and S2, no murmurs, rubs or gallops ABDOMEN: Soft, nontender, normoactive bowel sounds. No guarding, no rebound. No masses EXTREMITIES: Normal range of motion, no edema. No clubbing or cyanosis. No cords, erythema, or tenderness NEUROLOGICAL: Cranial nerves II through XII intact. +expressive aphasia. + dysarthria. 5/5 strength upper and lower extremities. Sensation intact throughout. No dysmetria. SKIN: Warm, Dry, normal turgor, no rashes or lesions noted. - Medical Decision Making 01/19/18 11:00 Vital Signs Temp Pulse Resp BP Pulse Ox 98.0 F 75 18 169/73 96 01/19/18 09:00 01/19/18 10:48 01/19/18 10:48 01/19/18 10:48 01/19/18 10:48 87 year old male presents with aphasia, likely CVA Head CT to r/o hemorrhage. Neuro consult (Dr. Olivas had consulted Dr. Birch) If no hemorrhage, aspirin. Labs Chest xray ECG Admit to stroke unit 01/19/18 11:57 CBC, BMP 01/19/18 09:15 01/19/18 09:15 CMP Sodium 140 mmol/L (136-145) 01/19/18 09:15 Potassium 3.7 mmol/L (3.5-5.1) 01/19/18 09:15 Chloride 108 mmol/L (98-107) H 01/19/18 09:15 Carbon Dioxide 28 mmol/L (21-32) 01/19/18 09:15 Anion Gap 4 (8-16) L 01/19/18 09:15 BUN 20 mg/dL (7-18) H 01/19/18 09:15 Creatinine 1.4 mg/dL (0.7-1.3) H 01/19/18 09:15 Creat Clearance w eGFR 48.16 (>60) 01/19/18 09:15 Random Glucose 112 mg/dL (74-106) H D 01/19/18 09:15 Calcium 7.9 mg/dL (8.5-10.1) L 01/19/18 09:15 Total Bilirubin 0.4 mg/dL (0.2-1.0) 01/19/18 09:15 AST 23 U/L (15-37) D 01/19/18 09:15 ALT 18 U/L (12-78) 01/19/18 09:15 Alkaline Phosphatase 104 U/L (45-117) 01/19/18 09:15 Creatine Kinase 78 IU/L (39-308) 01/19/18 09:15 Troponin I < 0.02 ng/ml (0.00-0.05) 01/19/18 09:15 Total Protein 7.1 g/dl (6.4-8.2) 01/19/18 09:15 Albumin 2.8 g/dl (3.4-5.0) L 01/19/18 09:15 Triglycerides 83 mg/dL (35-160) 01/19/18 09:40 Cholesterol 226 mg/dL (50-200) H 01/19/18 09:40 Total LDL Cholesterol 146 mg/dL (5-100) H 01/19/18 09:40 HDL Cholesterol 67 mg/dl (29-89) 01/19/18 09:[address] reviewed. Unremarkable. Heart Score/ECG Review #1 ECG reviewed & interpreted by me at: 09:20 01/19/18 10:30 NSR 75, no std/ester, QTC 455 msec. (poor data quality) NIH Stroke Scale - Last Known Well Date/Time & Onset Date Last Known Well: 01/18/18 Time Last Known Well: 22:00 - Initial Evaluation Level of consciousness: Alert Ask patient the month and their age: Both incorrect Ask patient to open & close eyes; make fist and let go: Obeys both correctly Best gaze (horizontal eye movement): Normal Visual field testing: No visual field loss Facial paresis (Show teeth/raise eyebrows/close eyes tight): Normal symmetrical movement Motor Function: Left Arm: Normal Motor Function: Right Arm: Normal (extends arm 90 (or 45) degrees for 10 seconds without drift Motor Function: Left Leg: Normal (extends leg 30 degrees for 5 seconds without drift) Motor Function: Right Leg: Normal (extends leg 30 degrees for 5 seconds without drift) Limb Ataxia: No ataxia Sensory(Use pinprick test arms,legs,trunk,face/side to side): Normal Best language (Describe picture, name items, read sentences): Mild to moderate aphasia Dysarthria (read several words): Mild to moderate slurring of words Extinction and Inattention: No abnormality - Total Score NIH Stroke Scale Score: 4
[2018-01-19 10:41] LABS: CHOLESTEROL 226 mg/dL (50-200); TRIGLYCERIDES 83 mg/dL (35-160)
[2018-01-19 10:42] LABS: HDL CHOLESTEROL 67 mg/dl (29-89)
--- NOTE | 2018-01-19 12:15 | EKG ---
Test Reason : Blood Pressure : / mmHG Vent. Rate : 075 BPM Atrial Rate : 075 BPM P-R Int : 166 ms QRS Dur : 074 ms QT Int : 408 ms P-R-T Axes : 057 003 084 degrees QTc Int : 455 ms POOR DATA QUALITY, INTERPRETATION MAY BE ADVERSELY AFFECTED SINUS RHYTHM NONSPECIFIC ST AND T WAVE ABNORMALITY ABNORMAL ECG WHEN COMPARED WITH ECG OF 12-NOV-2017 10:07, COMPARED TO EKG NO SIGNIFICANT CHANGE IS FOUND Confirmed by SHALINI CASTREJON MD ([id number]) on 01/19/2018 12:14:57 PM Referred By: Confirmed By:SHALINI CASTREJON MD
[2018-01-19] MEDS ORDERED: ALPRAZolam 0.25 MG TABLET PO PRN (12:16)
[2018-01-19] MEDS ORDERED: ACETAMINOPHEN 325 MG TABLET (FP) PO PRN (12:18)
[2018-01-19] MEDS ORDERED: PATIENT'S OWN MEDICATION (NON-FORMULARY) (Magnesium Hydrox 2400mg/30ml 30 ML) PO SCH (12:30)
--- NOTE | 2018-01-19 12:37 | HP ---
Admitting History and Physical - Admission History of Present Illness: 87 year old male c/ hx of HTN, PAD, HLD, CVA ( 1998), esophageal ca, dementia p/ w expressive aphasia. The patient went to bed yesterday at 10 pm in his usual state of health. Woke up at 5 am with slurring of speech and expressive aphasia. Denies chest pain or shortness of breath. Pt accompanied by . Pt has had very mild R sided neuro deficit (chronic). Normally speaks without slurring or aphasia. Does have some difficulty with word finding when stressed. Outside window of TPA. Recent w/u for "difficulty swallowing " identified distal esophageal mass, had recent EGD with BX by Dr Lopez -- + adeno Ca. Scheduled for further work up through 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 Cardiovascular: Yes: HTN (however on no meds htn meds intermittently) Gastrointestinal: Yes: Other (dysphagia) Psych: Yes: Depression Musculoskeletal: Yes: Hemiparesis - Smoking History Smoking history: Former smoker Have you smoked in the past 12 months: No If you are a former smoker, when did you quit?: 2013 - Alcohol/Substance Use Hx Alcohol Use: No - Social History ADL: Family Assistance History of Recent Travel: No Home Medications - Allergies Allergies/Adverse Reactions: Allergies Allergy/AdvReac Type Severity Reaction Status Date / Time Penicillins Allergy Swelling Verified 01/19/18 09:00 - Home Medications Home Medications: Ambulatory Orders Alprazolam 0.25 mg PO PRN 11/13/17 Amlodipine Besylate 5 mg PO DAILY 11/13/17 Lisinopril [Prinivil -] 40 mg PO DAILY 11/13/17 Atenolol [Tenormin -] 25 mg PO DAILY tablet 11/14/17 Donepezil HCl [Aricept] 5 mg PO DAILY 01/05/18 Finasteride [Proscar -] 5 mg PO DAILY 01/05/18 Hydrochlorothiazide 25 mg PO ASDIR 01/05/18 Magnesium Hydrox 2400MG/30Ml [Milk of Magnesia -] 30 ml PO ASDIR 01/05/18 Psyllium Husk (with Sugar) [Metamucil Packet] 1 pack PO BID 01/05/18 Tamsulosin HCl [Flomax] 0.8 mg PO DAILY 01/05/18 Review of Systems - Review of Systems Constitutional: denies: Chills, Fever, Loss of Appetite, Unintentional Wgt. Loss Eyes: reports: No Symptoms HENT: reports: Difficult Swallowing. denies: Throat Pain Neck: reports: No Symptoms. denies: Lumps, Pain on Movement, Swollen Glands Cardiovascular: reports: No Symptoms Respiratory: reports: No Symptoms Gastrointestinal: reports: No Symptoms, Dysphagia (mild difficulty). denies: Abdominal Pain, Bloating, Vomiting Blood Genitourinary: reports: No Symptoms Breasts: reports: No Symptoms Reported Musculoskeletal: reports: Muscle Weakness Integumentary: reports: No Symptoms Neurological: reports: Pre-Existing Deficit, Unsteady Gait, Weakness Endocrine: reports: No Symptoms Hematology/Lymphatic: reports: No Symptoms Psychiatric: reports: Anxiety, Depression Physical Examination Vital Signs: Vital Signs Temperature 98.0 F 01/19/18 09:00 Pulse Rate 75 01/19/18 10:48 Respiratory Rate 18 01/19/18 10:48 Blood Pressure 169/73 01/19/18 10:48 O2 Sat by Pulse Oximetry (%) 96 01/19/18 10:48 Constitutional: Yes: Well Nourished, No Distress, Anxious Eyes: Yes: WNL, Conjunctiva Clear, EOM Intact HENT: Yes: Atraumatic, Normocephalic, Other (no facial asymmetry) Neck: Yes: Supple, Trachea Midline Cardiovascular: Yes: Regular Rate and Rhythm Respiratory: Yes: CTA Bilaterally Gastrointestinal: Yes: Normal Bowel Sounds, Soft Renal/: Yes: WNL Breast(s): Yes: WNL Musculoskeletal: Yes: Muscle Weakness (left sided weakness) Edema: No Peripheral Pulses WNL: Yes Integumentary: Yes: WNL Neurological: Yes: Alert, Oriented, Dysarthria, Pre-Existing Deficit. No: Facial Droop, Lethargy Psychiatric: Yes: Alert, Oriented, Agitated Labs: CBC, BMP 01/19/18 09:15 01/19/18 09:15 Problem List - Problems (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 Assessment/Plan assmt / plan # expressive dysphasia MRI ordered to evaluate for new CVA Neurology eval speech / swallow evaluation ASA / fasting lipids Hx of CA with left hemiparesis (1998) motor function seems at baseline evaluate with Physical therapy # HTN has been stable on out patient med # Recent Dx > distal esophageal Ca EGD [address] Lopez - scheduled follow up with Keysha
--- NOTE | 2018-01-19 14:14 | CONSULT ---
Admitting History and Physical - Primary Care Physician PCP: Malissa Seaman I - Admission History of Present Illness: Per emr: History of Present Illness: 87 year old male c/ hx of HTN, PAD, HLD, CVA ( 1998), esophageal ca, dementia p/ w expressive aphasia. The patient went to bed yesterday at 10 pm in his usual state of health. Woke up at 5 am with slurring of speech and expressive aphasia. Denies chest pain or shortness of breath. Pt accompanied by . Pt has had very mild R sided neuro deficit (chronic). Normally speaks without slurring or aphasia. Does have some difficulty with word finding when stressed. Outside window of TPA. Recent w/u for "difficulty swallowing " identified distal esophageal mass, had recent EGD with BX by Dr Lopez -- + adeno Ca. Scheduled for further work up through [facility] - This is my first consult with this pt. Pt seen in ER. He was frustrated earlier, unable to express himself, and hit his . Ativan given. 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 Cardiovascular: Yes: HTN (however on no meds htn meds intermittently) Gastrointestinal: Yes: Other (dysphagia) Psych: Yes: Depression Musculoskeletal: Yes: Hemiparesis - Smoking History Smoking history: Former smoker Have you smoked in the past 12 months: No If you are a former smoker, when did you quit?: 2012 - Alcohol/Substance Use Hx Alcohol Use: No - Social History ADL: Family Assistance History of Recent Travel: No History - Admission Reason For Visit: BROCA'S DYSPHASIA, CEREBROVASCULAR ACCIDENT(CVA) - Diagnostics CT Scan: Report Reviewed - General Mental Status: Alert and Oriented, Awake and Alert, Able to Follow Commands Attention: Intact Ability to Follow Directions: Good Head/Neck Control: WFL - Hearing Hearing: Impaired Speech Evaluation - Communication Primary Language: WOLOF Communication: Yes: Aphasia, Hearing Deficit Oral Expression Ability: Yes: Moderate Impairment, Severe Impairment - Speech Production Able to Make Needs Known: Yes: Moderately Impaired, Severely Impaired Intelligibility: Yes: Moderately Impaired, Severely Impaired - Speech Characteristics Voice Loudness: Normal Voice Pitch: Yes: Normal Voice Phonatory-based Quality: Yes: Normal Speech Pattern: Impaired Speech Clarity: < 25% Nasal Resonance: Normal Articulation: Yes: Precise - Language/Auditory Comprehension Follows: Yes: 1 Stage Simple Commands, 2 Stage Simple Commands Observation: Able to respond to yes/no queries: Yes, Yes/No Confusion: No, Comprehends Conversational Speech: Yes, Benefits from Slow Speech: Yes, Benefits from Repetiton: Yes, Benefits from Increased Volume of Speech: Yes - Language/Verbal Expression Aphasia: Yes: Nonfluent, Anomia, Impaired Repetition, Paraphrasic Errors, Neologisms, Sound Errors Able to Respond to Simple Queries: Yes: Moderately Impaired, Severely Impaired Able to Communicate Wants and Needs: Yes: Moderately Impaired, Severely Impaired Functional Communication Status: Yes: Moderately Impaired, Severely Impaired - Swallow Evaluation/Bedside Assessment Current Nutritional Intake: NPO Oral Secretions: Yes: WFL Dentition: Yes: Adequate Facial Symmetry at Rest: Facial Droop Right Facial Symmetry on Retraction: Symmetrical Facial Movement: Controlled Sensation: Normal Against Resistance Opening: Normal Against Resistance Closing: Normal Pucker Lips: Normal Smile: Normal Lingual Movement: Normal, Symmetric Lingual Speed of Movement: Normal Lingual Movement Strgth Against Opposition: Normal Lingual Movement Characteristics: Normal Velopharyngeal Movement: Normal Laryngeal Elevation: WFL Laryngeal Movement: Able to Palpate Rate of Intake: WFL Bolus Size: WFL Labial Seal: WFL Chewing: WFL Oral Prep Time: WFL A-P Transit: WFL Pocketing: None Timing of Swallow: WFL Coughing/Throat Clear: No Change in Voice: No Recommendations - Speech Evaluation, Impression/Plan Impression: Pt is oriented, with Moderate to severe Aphasia, with greated difficulty with propositional speech tasks. Comprehension is intact when speaker increases volume, speaks slowly and repeats as needed. Naming is good on simple level, with greater difficulty with less common words eg Garbage. He is able to repeat words and high probability sentences, with difficulty with longer and low probability sentences.He can sing in unison, and automatic series , open ened phrases are accurate 60% of the time. Oropharyngeal swallowing is intact with risk of esophageal dysphagia if he eats too fast, too much, without drinking or giving esoph time to empty. Pt does report chest discomfort at times while eating, c/w impaired esoph empting? - Disposition Discharge to: Home with Assist, Rehabilitation Center, To be Determined ( intensive speech tx via homecare vs rehab, dependent on ambulatory status) - Dysphagia Impressions/Plan Dysphagia Impressions: Mild Impairment, Risk of Aspiration *Silent aspiration: cannot be R/O at bedside Dysphagia Treatment Plan: OOB for meals, OOB for 1 h. after meals, Other ( alternate solids with liquids. Complete meals with liquid. Several small meals throughout the day. No food or drink within 2 hrs of bedtime.) - Recommendations Diet Consistency: Regular (soft) Medication Administration: Crushed with applesauce Liquids: Thin Liquids Supplement: Ensure
--- NOTE | 2018-01-19 16:11 | CON.NEURO ---
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 Cardio/Vascular: Yes: HTN (however on no meds htn meds intermittently) Gastrointestinal: Yes: Other (dysphagia) Psych: Yes: Depression Musculoskeletal: Yes: Hemiparesis - Alcohol/Substance Use Hx Alcohol Use: No - Smoking History Smoking history: Former smoker Have you smoked in the past 12 months: No If you are a former smoker, when did you quit?: 2012 - Social History ADL: Family Assistance History of Recent Travel: No Home Medications - Allergies Allergies/Adverse Reactions: Allergies Allergy/AdvReac Type Severity Reaction Status Date / Time Penicillins Allergy Swelling Verified 01/19/18 09:00 - Home Medications Home Medications: Ambulatory Orders Alprazolam 0.25 mg PO PRN 11/13/17 Amlodipine Besylate 5 mg PO DAILY 11/13/17 Lisinopril [Prinivil -] 40 mg PO DAILY 11/13/17 Atenolol [Tenormin -] 25 mg PO DAILY tablet 11/14/17 Donepezil HCl [Aricept] 5 mg PO DAILY 01/05/18 Finasteride [Proscar -] 5 mg PO DAILY 01/05/18 Hydrochlorothiazide 25 mg PO ASDIR 01/05/18 Magnesium Hydrox 2400MG/30Ml [Milk of Magnesia -] 30 ml PO ASDIR 01/05/18 Psyllium Husk (with Sugar) [Metamucil Packet] 1 pack PO BID 01/05/18 Tamsulosin HCl [Flomax] 0.8 mg PO DAILY 01/05/18 Physical Exam-Neuro Vital Signs: Vital Signs Temperature 98.0 F 01/19/18 09:00 Pulse Rate 78 01/19/18 12:48 Respiratory Rate 18 01/19/18 12:48 Blood Pressure 144/87 01/19/18 12:48 O2 Sat by Pulse Oximetry (%) 96 01/19/18 12:48 Labs: CBC, BMP 01/19/18 09:15 01/19/18 09:15 INR, PTT INR 1.04 (0.82-1.09) 01/19/18 09:15 Assessment/Plan cc Expressive aphasia HPI 87 year old male history of HTN, HLD, Stroke in 1998 ( with mild residual right sided weaknes). He recently was diagnosed with esophageal cancer. Patient woke up with difficulty expressing . He is able to understand and having difficulty expressing words. He was taking aspirin but recently stopped taking aspirin as procedure were planned related to cancer. He also have history of dementia in past PMH, HTN,STROKE, DEMENTIA, esophageal cancer, stroke 1998 ,[facility] SH reviewed in chart Allergies/Adverse Reactions: Allergies Allergy/AdvReac Type Severity Reaction Status Date / Time Penicillins Allergy Swelling Verified 01/19/18 09:00 - Home Medications = Alprazolam 0.25 mg PO PRN 11/13/17 Amlodipine Besylate 5 mg PO DAILY 11/13/17 Lisinopril [Prinivil -] 40 mg PO DAILY 11/13/17 Atenolol [Tenormin -] 25 mg PO DAILY tablet 11/14/17 Donepezil HCl [Aricept] 5 mg PO DAILY 01/05/18 Finasteride [Proscar -] 5 mg PO DAILY 01/05/18 Hydrochlorothiazide 25 mg PO ASDIR 01/05/18 Magnesium Hydrox 2400MG/30Ml [Milk of Magnesia -] 30 ml PO ASDIR 01/05/18 Psyllium Husk (with Sugar) [Metamucil Packet] 1 pack PO BID 01/05/18 Tamsulosin HCl [Flomax] 0.8 mg PO DAILY 01/05/18 Neurological Examination Alert follow command, difficulty with spontaneous speech, no facial palsy, sensation is normal, mild right sided weakness( as per it is old) sensation is normal ct head unremarkable. Assessment Left mca stroke, Risk factor, HTN HLD previosu stroke Plan-- start aspirin and statin 2. MRI of and carotid ultrasound 3. PT,SPEECH 4. Continue risk factor reducation [facility] Bou[facility]ac[facility] Stephenson MD
[2018-01-19] MEDS ORDERED: LORazepam 1 MG TABLET PO PRN (16:12)
[2018-01-19] MEDS: ASPIRIN 81 MG CHEWABLE TABLETS PO SCH (17:06)
[2018-01-19] MEDS ORDERED: ASPIRIN 81 MG CHEWABLE TABLETS ONE (17:09)
[2018-01-19] MEDS ORDERED: CYCLOBENZAPRINE HCL 10 MG TABLET (FP) ONE (17:09)
[2018-01-19] MEDS ORDERED: MAGNESIUM HYDROX 2400MG/30ML ORAL SUSPENSION 30 ML CUP PO PRN (20:05)
[2018-01-19] MEDS: DOCUSATE SODIUM 100 MG CAPSULE (FP) PO SCH (21:07)
[2018-01-19] MEDS: PSYLLIUM 5.85 GM PACKET PO SCH (21:07)
[2018-01-19] MEDS: ATORVASTATIN CA 40 MG TABLET (FP) PO SCH (21:07)
[2018-01-20] MEDS: LORazepam 1 MG TABLET PO PRN (00:25)
[2018-01-20] MEDS ORDERED: HALOPERIDOL LACTATE 5 MG/ML IM ONE (02:34)
[2018-01-20] MEDS ORDERED: PT OWN MED DRAWER 7, Y5N ONE ×2 (06:11→22:06)
--- NOTE | 2018-01-20 06:47 | RAPID ---
Physical Examination Vital Signs: Vital Signs Temperature 97.5 F L 01/20/18 01:00 Pulse Rate 76 01/20/18 01:00 Respiratory Rate 20 01/20/18 01:00 Blood Pressure 155/77 01/20/18 01:00 O2 Sat by Pulse Oximetry (%) 95 01/20/18 00:00 Findings/Remarks: Rapid response called at 2:27am. Rapid response team arrived. Nurse at bed-side. Patient agitated, kicking, and screaming. Constitutional: Yes: Anxious Cardiovascular: Yes: Regular Rate and Rhythm Respiratory: Yes: WNL Psychiatric: Yes: Agitated Rapid Response - Rapid Response Plan: 5mg Haldol IV once 1mg Ativan IV once
[2018-01-20 07:06] LABS: HEMATOCRIT 37.1 % (35.4-49); HEMOGLOBIN 12.6 GM/dL (11.7-16.9); MCH 30.7 pg (25.7-33.7); MCHC 33.9 g/dl (32.0-35.9); MEAN CELL VOLUME 90.4 fl (80-96); MEAN PLT VOLUME 7.2 fl (7.5-11.1); PLATELET COUNT 198 K/MM3 (134-434); RBC 4.11 M/mm3 (4.00-5.60); RDW 14.4 % (11.9-15.9); WHITE BLOOD COUNT 9.8 K/mm3 (4.0-10.0)
[2018-01-20 07:14] LABS: ANION GAP 6 (8-16); BLOOD UREA NITROGEN 15 mg/dL (7-18); CALCIUM 8.3 mg/dL (8.5-10.1); CHLORIDE 109 mmol/L (98-107); CO2 27 mmol/L (21-32); CREATININE 1.3 mg/dL (0.7-1.3); GLUCOSE,RANDOM 91 mg/dL (74-106); MAGNESIUM 1.8 mg/dL (1.8-2.4); POTASSIUM 3.6 mmol/L (3.5-5.1); SODIUM 142 mmol/L (136-145)
--- NOTE | 2018-01-20 09:13 | PN ---
Progress Note (short form) - Note Progress Note: c Expressive aphasia HPI 87 year old male history of HTN, HLD, Stroke in 1998 ( with mild residual right sided weaknes). He recently was diagnosed with esophageal cancer. Patient woke up with difficulty expressing . He is able to understand and having difficulty expressing words. He was taking aspirin but recently stopped taking aspirin as procedure were planned related to cancer. He also have history of dementia in past mri showed left frontal lobe acute stroke, carotid ultrasound is unremarkable. He was agitated last night , had to restrain and haldol was given. = Neurological Examination Alert follow command, difficulty with spontaneous speech, no facial palsy, sensation is normal, mild right sided weakness( as per it is old) sensation is normal ct head unremarkable. mri of brain and carotid ultrasound reviewed Assessment Left mca stroke, Risk factor, HTN HLD previous stroke Plan-- conitnue aspirin and statin 2. PT,SPEECH ( consult appreciated ) He would need short term rehab Thanking you so much Boubacar Stephenson md
[2018-01-20] MEDS: amLODIPine BESYLATE 5 MG TABLET (FP) PO SCH (09:22)
[2018-01-20] MEDS: FINASTERIDE 5 MG TABLET (FP) PO SCH (09:22)
[2018-01-20] MEDS: PANTOPRAZOLE 40 MG TABLET (FP) PO SCH (09:22)
[2018-01-20] MEDS: SODIUM CHLORIDE 1,000 ML IV SCH ×2 (09:23→22:28)
[2018-01-20] MEDS: ATENOLOL 25 MG TABLET (FP) PO SCH (09:23)
[2018-01-20] MEDS: TAMSULOSIN HCL 0.4 MG CAP.ER.24H (FP) PO SCH (09:23)
[2018-01-20] MEDS: PSYLLIUM 5.85 GM PACKET PO SCH ×2 (09:23→22:10)
[2018-01-20] MEDS: ASPIRIN 81 MG CHEWABLE TABLETS PO SCH (09:23)
[2018-01-20] MEDS: DOCUSATE SODIUM 100 MG CAPSULE (FP) PO SCH ×2 (09:23→22:10)
[2018-01-20] MEDS: LISINOPRIL 20 MG TABLET (FP) PO SCH (09:23)
[2018-01-20] MEDS ORDERED: PATIENT'S OWN MEDICATION (NON-FORMULARY) (Lisinopril [Prinivil -] 40 MG) PO SCH (10:00)
--- NOTE | 2018-01-20 12:42 | PN ---
Progress Note, SASH FINISHER - Note Progress Note: Medical events noted. MRI acute left CVA. Pt given sedation for agitation. Awake but slow to respond and speech more imprecise, likely sec to sedation. Expressive Aphasia similar to performance in ER. Pt trying to feed himself but unsuccessfu;l. Initially, he refused his 's help but did accept it with my counseling. Overtly tolerating yogurt. Revfused pasta etc. Pt may tolerate softer foods and chopped meats until he improves. REC: Tuna/chicken salad, soft, easy to chew cut up foods eg quiche, pancakes with syrup, crustless soft sandwiches.
[2018-01-20] MEDS: ATORVASTATIN CA 40 MG TABLET (FP) PO SCH (22:10)
--- NOTE | 2018-01-20 22:12 | PN ---
Progress Note (short form) - Note Progress Note: seen and examined in room event of last night reviewed in chart patient remains sedated but arousable at bedside able to answer questions appropriately but slowly difficult to asses due to sedation ( haldol 5mg and Ativan 1 mg @ 3am) Vital Signs Period Temp Pulse Resp BP Sys/Eng Pulse Ox Last 24 Hr 97.5 F-98.2 F 68-92 16-20 135-161/65-96 95-95 discussed findings with need for speech therapy and will need assmt to determine if motor skills at baseline lethargic /arousable neck supple heart S1/S2 lungs clear bilat abd soft nontender ext no edema / FROM (follows commands ) Laboratory Results - last 24 hr 01/20/18 01/20/18 05:35 05:35 WBC 9.8 RBC 4.11 Hgb 12.6 Hct 37.1 MCV 90.4 MCH 30.7 MCHC 33.9 RDW 14.4 Plt Count 198 MPV 7.2 L Sodium 142 Potassium 3.6 Chloride 109 H Carbon Dioxide 27 Anion Gap 6 L BUN 15 D Creatinine 1.3 Random Glucose 91 Calcium 8.3 L Magnesium 1.8 Active Medications Acetaminophen (Tylenol -) 650 mg PO Q4H PRN PRN Reason: PAIN LEVEL 1-5 Last Admin: 01/20/18 00:25 Dose: 650 mg Amlodipine Besylate (Norvasc -) 5 mg PO DAILY [facility] Last Admin: 01/20/18 09:22 Dose: 5 mg Aspirin (Asa -) 81 mg PO DAILY [facility] Last Admin: 01/20/18 09:23 Dose: 81 mg Atenolol (Tenormin -) 25 mg PO DAILY [facility] Last Admin: 01/20/18 09:23 Dose: 25 mg Atorvastatin Calcium (Lipitor -) 40 mg PO HS [facility] Last Admin: 01/19/18 21:07 Dose: 40 mg Divalproex Sodium (Depakote -) 125 mg PO BID [facility] Docusate Sodium (Colace -) 100 mg PO BID [facility] Last Admin: 01/20/18 09:23 Dose: 100 mg Finasteride (Proscar -) 5 mg PO DAILY [facility] Last Admin: 01/20/18 09:22 Dose: 5 mg Sodium Chloride (Normal Saline -) 1,000 mls @ 42 mls/hr IV ASDIR [facility] Last Admin: 01/20/18 09:23 Dose: 42 mls/hr Lisinopril (Prinivil) 40 mg PO DAILY [facility] Last Admin: 01/20/18 09:23 Dose: 40 mg Lorazepam (Ativan -) 1 mg PO Q8H PRN PRN Reason: ANXIETY Last Admin: 01/20/18 00:25 Dose: 1 mg Magnesium Hydroxide (Milk Of Magnesia -) 30 ml PO Q24H PRN PRN Reason: CONSTIPATION Pantoprazole Sodium (Protonix -) 40 mg PO DAILY [facility] Last Admin: 01/20/18 09:22 Dose: 40 mg Psyllium Hydrophilic Mucilloid (Metamucil (Sugar-Free) -) 5.85 gm PO BID [facility] Last Admin: 01/20/18 09:23 Dose: 5.85 gm Tamsulosin HCl (Flomax -) 0.8 mg PO DAILY@0830 [facility] Last Admin: 01/20/18 09:23 Dose: 0.8 mg # New CVA appreciated Neuro follow up discussed with speech therapy evaluate for any further motor deficit ( patient currently still sedated from early am meds) # patient with aggressive behavior discussed with patient and both agreeable to psychiatry evaluation will start depakote for mood stabilizer # HTN monitor / adjust meds if needed # esophageal CA need to persue work up once stable discussed discharge plans with - prefers to go home with out patient speech therapy, if motor functions remains at baseline Problem List - Problems (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
[2018-01-20] MEDS: DIVALPROEX SODIUM 125 MG TABLET E.C. PO SCH (23:05)
[2018-01-21 07:29] LABS: HEMATOCRIT 37.7 % (35.4-49); HEMOGLOBIN 12.8 GM/dL (11.7-16.9); MCH 30.8 pg (25.7-33.7); MCHC 33.9 g/dl (32.0-35.9); MEAN CELL VOLUME 90.8 fl (80-96); MEAN PLT VOLUME 7.1 fl (7.5-11.1); PLATELET COUNT 175 K/MM3 (134-434); RBC 4.15 M/mm3 (4.00-5.60); RDW 14.2 % (11.9-15.9); WHITE BLOOD COUNT 7.2 K/mm3 (4.0-10.0)
[2018-01-21 07:52] LABS: CREATININE 1.2 mg/dL (0.7-1.3)
[2018-01-21 08:13] LABS: ANION GAP 8 (8-16); BLOOD UREA NITROGEN 14 mg/dL (7-18); CHLORIDE 109 mmol/L (98-107); CHOLESTEROL 198 mg/dL (50-200); CO2 24 mmol/L (21-32); GLUCOSE,RANDOM 84 mg/dL (74-106); MAGNESIUM 1.7 mg/dL (1.8-2.4); POTASSIUM 3.2 mmol/L (3.5-5.1); SODIUM 141 mmol/L (136-145); TRIGLYCERIDES 93 mg/dL (35-160)
[2018-01-21 08:14] LABS: HDL CHOLESTEROL 58 mg/dL (40-60)
--- NOTE | 2018-01-21 08:34 | PN ---
Progress Note (short form) - Note Progress Note: CC Expressive aphasia HPI 87 year old male history of HTN, HLD, Stroke in 1998 ( with mild residual right sided weaknes). He recently was diagnosed with esophageal cancer. Patient woke up with difficulty expressing . He is able to understand and having difficulty expressing words. He was taking aspirin but recently stopped taking aspirin as procedure were planned related to cancer. He also have history of dementia in past mri showed left frontal lobe acute stroke, carotid ultrasound is unremarkable. He has improved lot , and now able to speak and express partially , still having difficulty with findings right word. = Neurological Examination Alert follow command, able to express but still have difficulty findings words no facial palsy, sensation is normal, mild right sided weakness( as per it is old) sensation is normal ct head unremarkable. Mri of brain showed left frontal lobe infarct, carotid ultrasound is unremarkable. Assessment Left mca stroke, Risk factor, HTN HLD previous stroke Plan-- conitnue aspirin and statin 2. Speech therapy 3. Placement to facility where speech is available 4. work up has been complete. continue current care. Thanking you so much Boubacar Stephenson md
[2018-01-21] MEDS: TAMSULOSIN HCL 0.4 MG CAP.ER.24H (FP) PO SCH (11:15)
[2018-01-21] MEDS: DOCUSATE SODIUM 100 MG CAPSULE (FP) PO SCH ×2 (11:15→21:37)
[2018-01-21] MEDS: PANTOPRAZOLE 40 MG TABLET (FP) PO SCH (11:15)
[2018-01-21] MEDS: FINASTERIDE 5 MG TABLET (FP) PO SCH (11:15)
[2018-01-21] MEDS: LISINOPRIL 20 MG TABLET (FP) PO SCH (11:15)
[2018-01-21] MEDS: amLODIPine BESYLATE 5 MG TABLET (FP) PO SCH (11:16)
[2018-01-21] MEDS: SODIUM CHLORIDE 1,000 ML IV SCH (11:16)
[2018-01-21] MEDS: ATENOLOL 25 MG TABLET (FP) PO SCH (11:16)
[2018-01-21] MEDS: PSYLLIUM 5.85 GM PACKET PO SCH ×2 (11:16→21:37)
[2018-01-21] MEDS: ASPIRIN 81 MG CHEWABLE TABLETS PO SCH (11:16)
[2018-01-21] MEDS: DIVALPROEX SODIUM 125 MG TABLET E.C. PO SCH ×2 (11:17→21:37)
--- NOTE | 2018-01-21 12:31 | PN ---
Progress Note (short form) - Note Progress Note: seen and examined in room and son at bedside sitting in wheelchair having lunch - no difficulty eating by himself awake alert understands conversation / able to speak few words in attempt to add to conversation Vital Signs Period Temp Pulse Resp BP Sys/Eng Pulse Ox Last 24 Hr 97.5 F-97.9 F 68-97 16-20 149-153/68-93 94-95 discussed findings with and son need for speech therapy and will need assmt to determine if motor skills at baseline awake alert OX3 feeding himself - having soft sandwich/ no coughing / no difficulty noted neck supple heart S1/S2 lungs clear bilat abd soft nontender ext no edema / FROM (follows commands ) Laboratory Results - last 24 hr 01/21/18 01/21/18 01/21/18 07:05 07:05 07:05 WBC 7.2 RBC 4.15 Hgb 12.8 Hct 37.7 MCV 90.8 MCH 30.8 MCHC 33.9 RDW 14.2 Plt Count 175 MPV 7.1 L Sodium 141 Potassium 3.2 L Chloride 109 H Carbon Dioxide 24 Anion Gap 8 BUN 14 Creatinine 1.2 Random Glucose 84 Calcium 8.0 L Magnesium 1.7 L Triglycerides 93 Cancelled Cholesterol 198 Cancelled Total LDL Cholesterol 136 H Cancelled HDL Cholesterol 58 Cancelled Active Medications Acetaminophen (Tylenol -) 650 mg PO Q4H PRN PRN Reason: PAIN LEVEL 1-5 Last Admin: 01/20/18 00:25 Dose: 650 mg Amlodipine Besylate (Norvasc -) 5 mg PO DAILY [facility] Last Admin: 01/21/18 11:16 Dose: 5 mg Aspirin (Asa -) 81 mg PO DAILY [facility] Last Admin: 01/21/18 11:16 Dose: 81 mg Atenolol (Tenormin -) 25 mg PO DAILY [facility] Last Admin: 01/21/18 11:16 Dose: 25 mg Atorvastatin Calcium (Lipitor -) 40 mg PO [facility] Last Admin: 01/20/18 22:10 Dose: 40 mg Divalproex Sodium (Depakote -) 125 mg PO BID [facility] Last Admin: 01/21/18 11:17 Dose: 125 mg Docusate Sodium (Colace -) 100 mg PO BID [facility] Last Admin: 01/21/18 11:15 Dose: 100 mg Finasteride (Proscar -) 5 mg PO DAILY [facility] Last Admin: 01/21/18 11:15 Dose: 5 mg Sodium Chloride (Normal Saline -) 1,000 mls @ 42 mls/hr IV ASDIR [facility] Last Admin: 01/21/18 11:16 Dose: 42 mls/hr Lisinopril (Prinivil) 40 mg PO DAILY [facility] Last Admin: 01/21/18 11:15 Dose: 40 mg Lorazepam (Ativan -) 1 mg PO Q8H PRN PRN Reason: ANXIETY Last Admin: 01/20/18 00:25 Dose: 1 mg Magnesium Hydroxide (Milk Of Magnesia -) 30 ml PO Q24H PRN PRN Reason: CONSTIPATION Pantoprazole Sodium (Protonix -) 40 mg PO DAILY [facility] Last Admin: 01/21/18 11:15 Dose: 40 mg Psyllium Hydrophilic Mucilloid (Metamucil (Sugar-Free) -) 5.85 gm PO BID [facility] Last Admin: 01/21/18 11:16 Dose: 5.85 gm Tamsulosin HCl (Flomax -) 0.8 mg PO DAILY@0830 [facility] Last Admin: 01/21/18 11:15 Dose: 0.8 mg # New CVA appreciated Neuro follow up discussed with and son ( Marc) speech therapy evaluate for any further motor deficit ( PT eval pending today ) if motor skills at baseline - family would prefer home speech therapy however if motor skills deteriorated / fall risk increased -- would benefit from STR # patient with aggressive behavior discussed with patient and both agreeable to psychiatry evaluation started depakote for mood stabilizer -- informed and son # HTN monitor / adjust meds if needed # hypokalemia / hypomag replace both # esophageal CA need to persue work up once stable discussed discharge plans with and son - prefers to go home with out-patient speech therapy, if motor functions remains at baseline Problem List - Problems (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
[2018-01-21] MEDS ORDERED: MAGNESIUM SULF 50% (8.12 MEQ/2 ML-1 GM VIAL) IVPB ONE (12:32)
[2018-01-21] MEDS ORDERED: MAGNESIUM SULFATE IN WATER 2 GM/50 ML IVPB IVPB ONE (13:00)
[2018-01-21] MEDS ORDERED: POTASSIUM CHLORIDE TABS 20 MEQ TABLET.ER (FP) PO ONE (13:15)
--- NOTE | 2018-01-21 16:43 | PN ---
Progress Note, DIRECTOR PATIENT - Note Progress Note: 87 yo male seen as a follow up. MRI acute left CVA with epressive aphasia. Speech appears to have improved slightly since yesterday. prosthetics technician reports that pt is consuming mech soft without s/s of dysphagia. DIRECTOR PATIENT will continue to monitor and revise diet plan as appropriate. REC: Tuna/chicken salad, soft, easy to chew cut up foods eg quiche, pancakes with syrup, crustless soft sandwiches as per DIRECTOR PATIENT Jensen Leiva
--- NOTE | 2018-01-21 18:13 | CON.PSY ---
Psychiatry Consult Chief Complaint: Patient seen for acute agitation and combative behaviour [id number] to acute stroke> was given Haldol and ativan combination which seems to be effective. Symptoms: reports: Memory Impairment, Irritability, Impulsivity - Previous Psychiatric Treatment Outpatient: None Inpatient: None - Previous Substance Abuse Treatment Outpatient: None Inpatient: None - Current Medications Current Medications: Active Medications Acetaminophen (Tylenol -) 650 mg PO Q4H PRN PRN Reason: PAIN LEVEL 1-5 Last Admin: 01/20/18 00:25 Dose: 650 mg Amlodipine Besylate (Norvasc -) 5 mg PO DAILY [facility] Last Admin: 01/21/18 11:16 Dose: 5 mg Aspirin (Asa -) 81 mg PO DAILY [facility] Last Admin: 01/21/18 11:16 Dose: 81 mg Atenolol (Tenormin -) 25 mg PO DAILY [facility] Last Admin: 01/21/18 11:16 Dose: 25 mg Atorvastatin Calcium (Lipitor -) 40 mg PO HS [facility] Last Admin: 01/20/18 22:10 Dose: 40 mg Divalproex Sodium (Depakote -) 125 mg PO BID [facility] Last Admin: 01/21/18 11:17 Dose: 125 mg Docusate Sodium (Colace -) 100 mg PO BID [facility] Last Admin: 01/21/18 11:15 Dose: 100 mg Finasteride (Proscar -) 5 mg PO DAILY [facility] Last Admin: 01/21/18 11:15 Dose: 5 mg Sodium Chloride (Normal Saline -) 1,000 mls @ 42 mls/hr IV ASDIR [facility] Last Admin: 01/21/18 11:16 Dose: 42 mls/hr Lisinopril (Prinivil) 40 mg PO DAILY [facility] Last Admin: 01/21/18 11:15 Dose: 40 mg Lorazepam (Ativan -) 1 mg PO Q8H PRN PRN Reason: ANXIETY Last Admin: 01/20/18 00:25 Dose: 1 mg Magnesium Hydroxide (Milk Of Magnesia -) 30 ml PO Q24H PRN PRN Reason: CONSTIPATION Pantoprazole Sodium (Protonix -) 40 mg PO DAILY [facility] Last Admin: 01/21/18 11:15 Dose: 40 mg Psyllium Hydrophilic Mucilloid (Metamucil (Sugar-Free) -) 5.85 gm PO BID [facility] Last Admin: 01/21/18 11:16 Dose: 5.85 gm Tamsulosin HCl (Flomax -) 0.8 mg PO DAILY@0830 [facility] Last Admin: 01/21/18 11:15 Dose: 0.8 mg - Allergies Allergies: Allergies Allergy/AdvReac Type Severity Reaction Status Date / Time Penicillins Allergy Swelling Verified 01/19/18 09:00 - Current Living Status Usual Living Arrangement: With Spouse - Current Mental Status Evaluation Appearance: Disheveled Attitude: Uncooperative - Affect Affect: Constrictive Appropriateness: Not Appropriate - Mood Mood: Irritable - Speech/Language Expressive: Delayed - Psychomotor Activity Psychomotor Activity: Slowed - Thought Process Thought Process: Loosening of Associations - Thought Content Hallucinations: Absent Delusions: Absent - Self Perception Self Perception: No Impairment - Cognition Attention: Diminished Orientation: Time, Person, Place Memory, Immediate Recall: Impaired Memory, Short Term: 1/3 Memory, Remote with Promptin/3 - Concentration Serial Sevens Intact: No Simple Calculations Intact: No - Abstraction Proverb Interpretation: Impaired Judgement: Moderately Impaired - Insight Insight: Impaired - Impulse Control Impulse Control: Moderately Impaired - Suicidal Ideation Suicidal Ideation: No - Homicidal Ideation Homicidal Ideation: No Assessment/Plan 1) Agree with Depakote for on going management of agitation.
[2018-01-21] MEDS ORDERED: PT OWN MED DRAWER 7, Y5N ONE (21:09)
[2018-01-21] MEDS: ATORVASTATIN CA 40 MG TABLET (FP) PO SCH (21:37)
[2018-01-21] MEDS: LORazepam 1 MG TABLET PO PRN (23:20)
[2018-01-22] MEDS ORDERED: PT OWN MED DRAWER 7, Y5N ONE (08:32)
--- NOTE | 2018-01-22 08:58 | PN ---
Progress Note (short form) - Note Progress Note: CC Expressive aphasia HPI 87 year old male history of HTN, HLD, Stroke in 1998 ( with mild residual right sided weaknes). He recently was diagnosed with esophageal cancer. Initial hospital presentation on january 20 was woke up with difficulty to express. He is able to understand and having difficulty expressing words. At home,He was taking aspirin but recently stopped taking aspirin as procedure were planned related to cancer. He also have history of dementia in past mri showed left frontal lobe acute stroke, carotid ultrasound is unremarkable. He seems tired and could not sleep, speech is improved since admission but continue to have difficulty Neurological Examination Alert follow command, able to express but still have difficulty findings words no facial palsy, sensation is normal, mild right sided weakness( as per it is old) sensation is normal ct head unremarkable. Mri of brain showed left frontal lobe infarct, carotid ultrasound is unremarkable. Assessment Left mca stroke, Risk factor, HTN HLD previous stroke Plan-- conitnue aspirin and statin 2. continue Speech therapy 3.Neurological work up has been complete, waiting for placement Thanking you so much Boubacar Stephenson md
[2018-01-22] MEDS: amLODIPine BESYLATE 5 MG TABLET (FP) PO SCH (09:07)
[2018-01-22] MEDS: TAMSULOSIN HCL 0.4 MG CAP.ER.24H (FP) PO SCH (09:07)
[2018-01-22] MEDS: LORazepam 1 MG TABLET PO PRN (09:07)
[2018-01-22] MEDS: FINASTERIDE 5 MG TABLET (FP) PO SCH (09:07)
[2018-01-22] MEDS: PSYLLIUM 5.85 GM PACKET PO SCH (09:07)
[2018-01-22] MEDS: DIVALPROEX SODIUM 125 MG TABLET E.C. PO SCH (09:07)
[2018-01-22] MEDS: LISINOPRIL 20 MG TABLET (FP) PO SCH (09:07)
[2018-01-22] MEDS: ASPIRIN 81 MG CHEWABLE TABLETS PO SCH (09:07)
[2018-01-22] MEDS: PANTOPRAZOLE 40 MG TABLET (FP) PO SCH (09:07)
[2018-01-22] MEDS: SODIUM CHLORIDE 1,000 ML IV SCH (09:08)
[2018-01-22] MEDS: DOCUSATE SODIUM 100 MG CAPSULE (FP) PO SCH (09:08)
[2018-01-22] MEDS: ATENOLOL 25 MG TABLET (FP) PO SCH (09:08)
[2018-01-22 09:15] LABS: ANION GAP 7 (8-16); BLOOD UREA NITROGEN 19 mg/dL (7-18); CALCIUM 8.1 mg/dL (8.5-10.1); CHLORIDE 110 mmol/L (98-107); CO2 23 mmol/L (21-32); CREATININE 1.4 mg/dL (0.7-1.3); GLUCOSE,RANDOM 100 mg/dL (74-106); MAGNESIUM 2.2 mg/dL (1.8-2.4); POTASSIUM 3.6 mmol/L (3.5-5.1); SODIUM 140 mmol/L (136-145)
--- NOTE | 2018-01-22 13:16 | DS ---
Physical Examination Vital Signs: Vital Signs Temperature 98.2 F 01/22/18 10:00 Pulse Rate 77 01/22/18 10:00 Respiratory Rate 20 01/22/18 10:00 Blood Pressure 154/86 01/22/18 10:00 O2 Sat by Pulse Oximetry (%) 95 01/22/18 09:00 Findings/Remarks: 87 year old male c/ hx of HTN, PAD, HLD, CVA ( 1998) with right sided hemiparesis, esophageal ca, dementia presented to ED with new onset expressive aphasia. The patient went to bed day prior to admission at 10 pm in his usual state of health. Woke up at 5 am with slurring of speech and expressive aphasia. Denied chest pain or shortness of breath. Normally speaks without slurring or aphasia. Does have some difficulty with word finding when stressed. He was outside window of TPA when he presented at ED Recent w/u for "difficulty swallowing " identified distal esophageal mass, had recent EGD with BX by Dr Lopez -- + adeno Ca. Scheduled for further work up through [facility] -- at time of discharge patient was sedated and poorly interactive ( received 1 mg Ativan early am ) Neurological Examination without sedation: Alert follow command, able to express but still have difficulty findings words no facial palsy, sensation is normal, mild right sided weakness, old uses cane for ambulation sensation is normal Work up during hospital stay: ---CT head unremarkable. ---Mri of brain showed new left frontal lobe infarct ---carotid ultrasound is unremarkable. Labs remarkable for CKD - baseline Cr 1.4 # New CVA left MCA stroke discussed with and son ( Marc) speech therapy baseline right sided weakness with further deconditioning due to hospital stay has been unable to participate with PT due to sedation ( sedated overnight due to agitation) hx of old CVA with right sided weakness # patient with aggressive behavior discussed with patient and both agreeable to psychiatry evaluation Evaluated by psychiatry, who agrees with depakote today day # 2 would prefer to avoid further sedation and slowly increase depakote for mood stabilizer as needed # HTN monitor / adjust meds if needed has required HCTZ on occasion due to fluid overload currently euvolemic therefore on hold # HLD lipid done at [facility] continue with statins # CKD Cr baseline 1.3-1.4 has remained stable during hospital stay # hypokalemia / hypomag replaced # esophageal CA need to persue work up once stable Constitutional: Yes: Well Nourished, No Distress Eyes: Yes: Conjunctiva Clear, EOM Intact HENT: Yes: Atraumatic, Normocephalic, Tonsillar Exudate Neck: Yes: Supple Cardiovascular: Yes: Regular Rate and Rhythm Respiratory: Yes: Regular, CTA Bilaterally Gastrointestinal: Yes: Normal Bowel Sounds, Soft ...Rectal Exam: Yes: Deferred Renal/: Yes: WNL Breast(s): Yes: WNL Musculoskeletal: Yes: Other (asabove) Extremities: Yes: WNL Edema: No Peripheral Pulses WNL: Yes Integumentary: Yes: WNL Neurological: Yes: Aphasia (expressive), Pre-Existing Deficit, Unsteady Gait, Weakness, Other (de-conditioning) Psychiatric: Yes: Other (sedated at time of transfer) Labs: CBC, BMP 01/21/18 07:05 01/22/18 08:46 Discharge Summary Reason For Visit: BROCA'S DYSPHASIA, CEREBROVASCULAR ACCIDENT(CVA) Current Active Problems Aggressive behavior, adult (Acute) Broca's dysphasia (Acute) Cerebrovascular accident (CVA) (Acute) Dysarthria (Acute) Condition: Fair - Instructions Referrals: Malissa Seaman MD [Primary Care Provider] - Disposition: [facility] FACILITY - Home Medications Comprehensive Discharge Medication List: Ambulatory Orders Amlodipine Besylate 5 mg PO DAILY 11/13/17 Lisinopril [Prinivil -] 40 mg PO DAILY 11/13/17 Atenolol [Tenormin -] 25 mg PO DAILY tablet 11/14/17 Donepezil HCl [Aricept] 5 mg PO DAILY 01/05/18 Finasteride [Proscar -] 5 mg PO DAILY 01/05/18 Magnesium Hydrox 2400MG/30Ml [Milk of Magnesia -] 30 ml PO ASDIR 01/05/18 Psyllium Husk (with Sugar) [Metamucil Packet] 1 pack PO BID 01/05/18 Tamsulosin HCl [Flomax -] 0.8 mg PO DAILY 01/05/18 Acetaminophen [Tylenol .Regular Strength -] 650 mg PO Q4H PRN tablet 01/22/18 Aspirin [ASA -] 81 mg PO DAILY tab.chew 01/22/18 Atorvastatin Ca [Lipitor] 40 mg PO HS tablet 01/22/18 Divalproex [Depakote -] 125 mg PO BID 30 Days #60 tablet. 01/22/18 Docusate Sodium [Colace -] 100 mg PO BID capsule 01/22/18 Lisinopril [Prinivil] 40 mg PO DAILY tablet 01/22/18
--- NOTE | 2018-01-22 13:31 | PN ---
Progress Note, AUTOMOBILE CONTRACT CLERK - Note Progress Note: Selected Entries 01/21/18 01/21/18 01/21/18 02:00 06:00 10:00 Breakfast Lunch Supper Temperature 97.6 F 97.6 F 98.2 F 01/21/18 01/21/18 01/21/18 14:00 18:24 22:00 Breakfast 25% Lunch 75% Supper 50% Temperature 97.8 F 98.2 F 01/22/18 01/22/18 01/22/18 06:00 09:46 10:00 Breakfast 50% 50% Lunch Supper Temperature 98.4 F 98.2 F Sleeping. Pending transfer to [facility]. Counseled family on CVA/Aphasia, ways to facilitate communication.
--- NOTE | 2018-01-22 13:57 | PN ---
Progress Note, LOOM CHANGER - Note Progress Note: Sleeping. Pending transfer to [facility]. Counseled family on CVA/Aphasia, ways to facilitate communication.
[2018-01-22 14:35] VITALS: BP 114/60; PULSE 69; TEMP 97.4
== END 2018-01-22 16:19 | DRG 65 ==
LOC: JER 08:57 → JERBED 10:51 → J4S 18:01
PROVIDERS: ADMIT Family Medicine; ATTEND Family Medicine
DX: I63.9 Cerebral infarction, unspecified (principal); I69.354 Hemiplegia and hemiparesis following cerebral infarction affecting left non-dominant side; F03.91 Unspecified dementia, unspecified severity, with behavioral disturbance; C15.9 Malignant neoplasm of esophagus, unspecified; F60.89 Other specific personality disorders; I69.320 Aphasia following cerebral infarction; F32.9 Major depressive disorder, single episode, unspecified; E78.5 Hyperlipidemia, unspecified; R47.1 Dysarthria and anarthria; I12.9 Hypertensive chronic kidney disease with stage 1 through stage 4 chronic kidney disease, or unspecified chronic kidney disease; N18.9 Chronic kidney disease, unspecified; E87.6 Hypokalemia; E83.42 Hypomagnesemia; Z87.891 Personal history of nicotine dependence
CPT/HCPCS: 36415; 70450-TC; 70551-TC; 71045-TC-FY; 80048; 80053; 80061; 81003; 81015; 82465; 82550; 83718; 83721; 83735; 84478; 84484; 85025; 85027; 85610; 86850; 86900; 86901; 93005; 93010; 93880-TC; 97116-GP; 97162-GP; 99285-25; J7030

== ENCOUNTER 2018-03-20 19:05 | Inpatient (IN) | payer OTHER, MEDICARE ==
[2018-03-20] MEDS ORDERED: SODIUM CHLORIDE 500 ML IV STA (19:24)
--- NOTE | 2018-03-20 19:35 | PDOC ---
Attending Attestation - Resident Resident Name: Sky Mishra - ED Attending Attestation I have performed the following: I have examined & evaluated the patient, The case was reviewed & discussed with the resident, I agree w/resident's findings & plan, Exceptions are as noted - HPI HPI: 03/20/18 22:54 Mr Fuentes is an 87 yo M h/o HTN, HLD, multiple CVAs (1980s, 1998, and 01/2018), esophageal CA s/p recent chemo and xrt (yesterday) Pt presents to the ER with a complaint of fevers which began at 4:30pm (+) fatigue, (+) cough x 2 weeks (non productive) No vomiting or diarrhea No dysuria No rash PMD: Dr. Seaman Oncologist: Dr. Amara Haley at [facility] ([phone]) Allergies: Penicillin (mouth swelling) Surgeries: laser prostate surgery 2 years ago, appendectomy many years ago, knee surgery - Physicial Exam PE: 03/20/18 20:07 GENERAL: A&Ox3, mild distress EYES: PERRLA, EOMI ENT: Moist mucus membranes NECK: No JVD LUNGS: Bibasilar crackles, no wheezes HEART: RRR, no murmurs ABDOMEN: Soft, nontender, BS present MUSCULOSKELETAL: No CVA Tenderness EXTREMITIES: 2+ pulses, no edema. NEUROLOGICAL: Cranial nerves II-XII intact. unilateral R sided hemiparesis noted. - Medical Decision Making 03/20/18 20:44 Laboratory Tests 03/20/18 03/20/18 03/20/18 19:48 19:48 19:48 WBC 14.1 H D Hgb 10.7 L D Hct 32.0 L D Plt Count 213 D Lactic Acid 1.6 Urine Blood 1+ H Urine Nitrite Negative Ur Leukocyte Esterase Negative Urine WBC (Auto) <1 Urine RBC (Auto) 2 CXR: bibasilar infiltrate Pt ordered for vanco and meropenam (h/o throat/tongue swelling with penicillins) Will admit to hospitalist service Clinical Impression: Fever, initial presentation Pneumonia, initial presentation
[2018-03-20] MEDS ORDERED: ACETAMINOPHEN 1000 MG/100 ML VIAL (NON FORMULARY) IVPB ONE (19:58)
[2018-03-20] MEDS ORDERED: ACETAMINOPHEN INJECTION 100 ML IVPB ONE (19:59)
[2018-03-20] MEDS ORDERED: MEROPENEM 1 GM in DEXTROSE 5%-WATER 100 ML IVPB SCH (20:00)
--- NOTE | 2018-03-20 20:03 | PDOC ---
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 His states that the fever began abruptly today at 4:30pm today associated with generalized fatigue and some mild, generalized abdominal pain. Reports that he was recently diagnosed with esophageal cancer and received his first round of chemotherapy and radiation yesterday at [facility]. Patient's states that he has had a non-productive cough for around 2 weeks, for which he took a short course of antibiotics. He was at baseline earlier in the day, ate breakfast and lunch and had tea. Did not eat or drink anything after he became ill. Denies chest pain, shortness of breath, nausea, vomiting, diarrhea, dysuria. PMD: Dr. Seaman Oncologist: Dr. Amara Haley at [facility] ([phone]) Allergies: Penicillin (mouth swelling) Surgeries: laser prostate surgery 2 years ago, appendectomy many years ago, knee surgery Smoking: former Alcohol: none Past History 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 History Allergies/Adverse Reactions: Allergies Allergy/AdvReac Type Severity Reaction Status Date / Time Penicillins Allergy Swelling Verified 03/20/18 19:07 Home Medications: Ambulatory Orders Amlodipine Besylate 5 mg PO DAILY 11/13/17 Lisinopril [Prinivil -] 40 mg PO DAILY 11/13/17 Atenolol [Tenormin -] 25 mg PO DAILY tablet 11/14/17 Donepezil HCl [Aricept] 5 mg PO DAILY 01/05/18 Finasteride [Proscar -] 5 mg PO DAILY 01/05/18 Magnesium Hydrox 2400MG/30Ml [Milk of Magnesia -] 30 ml PO ASDIR 01/05/18 Psyllium Husk (with Sugar) [Metamucil Packet] 1 pack PO BID 01/05/18 Tamsulosin HCl [Flomax -] 0.8 mg PO DAILY 01/05/18 Acetaminophen [Tylenol .Regular Strength -] 650 mg PO Q4H PRN tablet 01/22/18 Aspirin [ASA -] 81 mg PO DAILY tab.chew 01/22/18 Atorvastatin Ca [Lipitor] 40 mg PO HS tablet 01/22/18 Divalproex [Depakote -] 125 mg PO BID 30 Days #60 tablet. 01/22/18 Docusate Sodium [Colace -] 100 mg PO BID capsule 01/22/18 Lisinopril [Prinivil] 40 mg PO DAILY tablet 01/22/18 Hydrochlorothiazide 25 mg PO 03/20/18 Anemia: No Asthma: No Cancer: Yes (esophageal vs stomach) Cardiac Disorders: No CVA: Yes COPD: No CHF: No Dementia: No Diabetes: No GI Disorders: No Disorders: No HTN: Yes Hypercholesterolemia: No Liver Disease: No Seizures: No Thyroid Disease: No - Surgical History Abdominal Surgery: No Appendectomy: Yes Cardiac Surgery: No Cholecystectomy: Yes Lung Surgery: No Neurologic Surgery: No Orthopedic Surgery: Yes (ARTHROSCOPY) - Immunization History Immunization Up to Date: No - Suicide/Smoking/Psychosocial Hx Smoking History: Former smoker Have you smoked in the past 12 months: No If you are a former smoker, when did you quit?: 2013 Information on smoking cessation initiated: No 'Breaking Loose' booklet given: 01/19/18 Hx Alcohol Use: No Drug/Substance Use Hx: No Substance Use Type: None Hx Substance Use Treatment: No Review of Systems - Review of Systems Able to Perform ROS?: Yes Is the patient limited Venezuelan proficient: Yes Constitutional: Yes: Chills, Fever HEENTM: Yes: Difficulty Swallowing Respiratory: Yes: Cough Cardiac (ROS): No: Chest Pain ABD/GI: Yes: Difficulty Swallowing. No: Diarrhea, Nausea, Vomiting : No: Dysuria Musculoskeletal: No: Back Pain, Muscle Pain Neurological: No: Headache *Physical Exam - Vital Signs Last Vital Signs Temp Pulse Resp BP Pulse Ox 103.3 F H 85 20 147/67 93 L 03/20/18 19:07 03/20/18 19:07 03/20/18 19:07 03/20/18 19:07 03/20/18 19:07 - Physical Exam Comments: 03/20/18 20:07 GENERAL: A&Ox3, mild distress EYES: PERRLA, EOMI ENT: Moist mucus membranes NECK: No JVD LUNGS: CTA, no wheezes HEART: RRR, no murmurs ABDOMEN: Soft, nontender, BS present MUSCULOSKELETAL: No CVA Tenderness EXTREMITIES: 2+ pulses, no edema. NEUROLOGICAL: Cranial nerves II-XII intact. unilateral R sided hemiparesis noted. ED Treatment Course - LABORATORY CBC & Chemistry Diagram: 03/20/18 20:28 03/20/18 20:00 - RADIOLOGY Radiology Studies Ordered: Category Date Time Status CHEST X-RAY PORTABLE* [RAD] Stat Radiology 03/20/18 19:22 Ordered Medical Decision Making - Medical Decision Making 03/20/18 20:08 87 year old male with a hx of HTN, PAD, HLD, multiple CVAs with R sided hemiparesis, esophageal CA presented to the hospital for several hour hx of fevers and chills. Differential Analysis: patient was just started on chemotherapy and radiation at [facility] yesterday, will evaluate and treat as neutropenic fever; other possibilities include adverse effect of chemotherapy, PNA, UTI Plan: -CBC, CMP, Mag, UA, EKG, CXR, blood cx, urine cx, sputum cx, -Will treat empirically for neutropenic fever with meropenem 1gm q8h -Consult Dr. Amaro infectious disease -Tylenol 1000mg IV for fever -Patient has difficulty swallowing, will likely need another swallow evaluation 03/20/18 20:16 -discussed case with covering oncologist at [facility]; patient received Paclitaxel and Carboplatin yesterday as well as radiation therapy, possible that it is not neutropenic fever given how soon he got the treatment and the time it takes to drop absolute neutrophil count ~1 week -could also be side effect of medication itself -Will add vancomycin 1gm for gram + coverage -because of cough and patient's difficulty swallowing, could also be aspiration PNA - f/u CXR 03/20/18 20:20 -CXR read - patient may be developing bibasilar infiltrates *DC/Admit/Observation/Transfer Diagnosis at time of Disposition: Fever - Discharge Dispostion Decision to Admit order: Yes - Referrals Referrals: Malissa Seaman MD [Primary Care Provider] - - Patient Instructions - Post Discharge Activity
[2018-03-20 20:11] LABS: URINE APPEARANCE CLEAR; URINE BILIRUBIN NEGATIVE (<2.0 mg/dL); URINE COLOR LTYELLOW; URINE GLUCOSE (UA) NEGATIVE (NEGATIVE); URINE KETONE NEGATIVE (NEGATIVE); URINE LEUK ESTERASE NEGATIVE (NEGATIVE); URINE NITRITE NEGATIVE (NEGATIVE); URINE UROBILINOGEN NEGATIVE mg/dL (0.2-1.0)
[2018-03-20 20:18] LABS: URINE PROTEIN 2+ (NEGATIVE)
[2018-03-20] MEDS ORDERED: VANCOMYCIN 1,000 MG in DEXTROSE 5%-WATER - 250 ML IVPB ONE (20:19)
[2018-03-20 20:21] LABS: HEMOGLOBIN 10.7 GM/dL (11.7-16.9); MCH 29.6 pg (25.7-33.7); MCHC 33.4 g/dl (32.0-35.9); MEAN CELL VOLUME 88.5 fl (80-96); MEAN PLT VOLUME 8.1 fl (7.5-11.1); PLATELET COUNT 213 K/MM3 (134-434); RBC 3.61 M/mm3 (4.00-5.60); RDW 14.6 % (11.9-15.9); WHITE BLOOD COUNT 14.1 K/mm3 (4.0-10.0)
[2018-03-20 20:22] LABS: URINE HYALINE CAST 3 /lpf; URINE MUCUS RARE
[2018-03-20] MEDS ORDERED: VANCOMYCIN 1 GRAM (PRE-DOCKED) 1,000 MG/250 ML BAG IVPB ONE (20:22)
[2018-03-20 20:46] LABS: BASO % 0.5 % (0-2.0); HEMATOCRIT 29.5 % (35.4-49); HEMOGLOBIN 9.9 GM/dL (11.7-16.9); LYMPH % 6.5 % (8-40); MCH 29.7 pg (25.7-33.7); MCHC 33.4 g/dl (32.0-35.9); MEAN CELL VOLUME 89.1 fl (80-96); MEAN PLT VOLUME 7.9 fl (7.5-11.1); MONO % 5.4 % (3.8-10.2); NEUT % 87.6 % (42.8-82.8); PLATELET COUNT 184 K/MM3 (134-434); RBC 3.32 M/mm3 (4.00-5.60); RDW 14.6 % (11.9-15.9); WHITE BLOOD COUNT 12.8 K/mm3 (4.0-10.0)
[2018-03-20 20:49] LABS: ALBUMIN 2.6 g/dl (3.4-5.0); ANION GAP 8 (8-16); BLOOD UREA NITROGEN 22 mg/dL (7-18); CALCIUM 7.8 mg/dL (8.5-10.1); CHLORIDE 103 mmol/L (98-107); CO2 26 mmol/L (21-32); GLUCOSE,RANDOM 90 mg/dL (74-106); POTASSIUM 3.5 mmol/L (3.5-5.1); SODIUM 137 mmol/L (136-145)
[2018-03-20 20:52] LABS: ALK PHOS 83 U/L (45-117); BILIRUBIN,TOTAL 0.5 mg/dL (0.2-1.0); CREATININE 1.4 mg/dL (0.7-1.3); SGOT/AST 20 U/L (15-37); SGPT/ALT 17 U/L (12-78); TOT PROT 7.2 g/dl (6.4-8.2)
[2018-03-20] MEDS ORDERED: MEROPENEM 1 GM in DEXTROSE 5%-WATER - 250 ML IVPB ONE (20:53)
--- NOTE | 2018-03-20 22:40 | HP ---
CHIEF COMPLAINT: fever and chills x 1 day PCP: Dr Shira Haley ([facility]) HISTORY OF PRESENT ILLNESS: Pt had a recent stroke 01/21 with residual slurred speech so at bedside provided most of the hx. Pt is an 87 yo M with PMHx of hypertension, PAD, HLD, BPH, multiple CVAs ( , 1998, 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 Home temp was difficult to document because of chills, but pt was noted to be Tmax 103 in the ED, and hypoxic, requiring NC 2L oxygen. Pt does not use home O2 and has no chronic lung disease, and had been treated for persistent cough about 3 weeks ago with Zpack and recently given flonase. Pt is allergic to penicilins. Pt started chemo and radiation therapy yesterday and had another chemotherapy session today with Paclitaxel and carboplatin( pt chart). No dysuria, but has had recent urinary frequency. Pt had laser tx 2 years ago for BPH, not a known diabetic. No seizures or fecal or urinary incontinence. Pt is independent at ADLs, able to walk with a cane or walker, with residual RLE extremity weakness from stroke in . 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 Smoking: Quit about 3 years ago-smoked 2packs/per day from 15 years Alcohol:social Drugs: Family History: Allergies Penicillins Allergy (Verified 03/20/18 19:07) Swelling swelling in the mouth HOME MEDICATIONS: Home Medications Medication Instructions Recorded Amlodipine Besylate 5 mg PO DAILY 11/13/17 Lisinopril [Prinivil -] 40 mg PO DAILY 11/13/17 Atenolol [Tenormin -] 25 mg PO DAILY tablet 11/14/17 Donepezil HCl [Aricept] 5 mg PO DAILY 01/05/18 Finasteride [Proscar -] 5 mg PO DAILY 01/05/18 Magnesium Hydrox 2400MG/30Ml [Milk 30 ml PO ASDIR 01/05/18 of Magnesia -] Psyllium Husk (with Sugar) 1 pack PO BID 01/05/18 [Metamucil Packet] Tamsulosin HCl [Flomax -] 0.8 mg PO DAILY 01/05/18 Acetaminophen [Tylenol .Regular 650 mg PO Q4H PRN tablet 01/22/18 Strength -] Aspirin [ASA -] 81 mg PO DAILY tab.chew 01/22/18 Atorvastatin Ca [Lipitor] 40 mg PO HS tablet 01/22/18 Divalproex [Depakote -] 125 mg PO BID 30 Days #60 tablet. 01/22/18 Docusate Sodium [Colace -] 100 mg PO BID capsule 01/22/18 Lisinopril [Prinivil] 40 mg PO DAILY tablet 01/22/18 Hydrochlorothiazide 25 mg PO 03/20/18 REVIEW OF SYSTEMS CONSTITUTIONAL: Absent: fever, chills, diaphoresis, generalized weakness, malaise, loss of appetite, weight change HEENT: Absent: rhinorrhea, nasal congestion, throat pain, throat swelling, difficulty swallowing, mouth swelling, ear pain, eye pain, visual changes CARDIOVASCULAR: Absent: chest pain, syncope, palpitations, irregular heart rate, lightheadedness , peripheral edema RESPIRATORY: Absent: cough, shortness of breath, dyspnea with exertion, orthopnea, wheezing, stridor, hemoptysis GASTROINTESTINAL: Absent: abdominal pain, abdominal distension, nausea, vomiting, diarrhea, constipation, melena, hematochezia GENITOURINARY: Absent: dysuria, frequency, urgency, hesitancy, hematuria, flank pain, genital pain MUSCULOSKELETAL: Absent: myalgia, arthralgia, joint swelling, back pain, neck pain SKIN: Absent: rash, itching, pallor HEMATOLOGIC/IMMUNOLOGIC: Absent: easy bleeding, easy bruising, lymphadenopathy, frequent infections ENDOCRINE: Absent: unexplained weight gain, unexplained weight loss, heat intolerance, cold intolerance NEUROLOGIC: Absent: headache, focal weakness or paresthesias, dizziness, unsteady gait, seizure, mental status changes, bladder or bowel incontinence PSYCHIATRIC: Absent: anxiety, depression, suicidal or homicidal ideation, hallucinations. PHYSICAL EXAMINATION Vital Signs - 24 hr 03/20/18 03/20/18 19:07 22:09 Temperature 103.3 F H 98.8 F Pulse Rate 85 Pulse Rate [ 71 Left] Respiratory 20 17 Rate Blood Pressure 147/67 Blood Pressure 108/66 [Left Arm] O2 Sat by Pulse 93 L 96 Oximetry (%) GENERAL: Awake, alert, and fully oriented, in no acute distress. Slurred speech HEAD: Normal with no signs of trauma. EYES: Pupils equal, round and reactive to light, LUNGS: Reduced Breath sounds bilaterally HEART: Regular rate and rhythm, normal S1 and S2 without murmur, rub or gallop. ABDOMEN: Soft, nontender, not distended, normoactive bowel sounds UPPER EXTREMITIES: Normal tone and strength bilaterally LOWER EXTREMITIES: strength 4+/5 on LLE, 2/5 RLE NEUROLOGICAL: Reduced vision L eye (macular degen), reduced hearing. slurred speech Laboratory Results - last 24 hr 03/20/18 03/20/18 03/20/18 19:48 19:48 19:48 WBC 14.1 H D RBC 3.61 L Hgb 10.7 L D Hct 32.0 L D MCV 88.5 MCH 29.6 MCHC 33.4 RDW 14.6 Plt Count 213 D MPV 8.1 D Absolute Neuts (auto) Neutrophils % Lymphocytes % Monocytes % Eosinophils % Basophils % Nucleated RBC % Sodium Potassium Chloride Carbon Dioxide Anion Gap BUN Creatinine Creat Clearance w eGFR Random Glucose Lactic Acid 1.6 Calcium Total Bilirubin AST ALT Alkaline Phosphatase Total Protein Albumin Urine Color Ltyellow Urine Appearance Clear Urine pH 6.0 Ur Specific Severance 1.013 Urine Protein 2+ H Urine Glucose (UA) Negative Urine Ketones Negative Urine Blood 1+ H Urine Nitrite Negative Urine Bilirubin Negative Urine Urobilinogen Negative Ur Leukocyte Esterase Negative Urine WBC (Auto) <1 Urine RBC (Auto) 2 Hyaline Casts 3 Urine Mucus Rare 03/20/18 03/20/18 20:00 20:28 WBC 12.8 H RBC 3.32 L Hgb 9.9 L Hct 29.5 L MCV 89.1 MCH 29.7 MCHC 33.4 RDW 14.6 Plt Count 184 MPV 7.9 Absolute Neuts (auto) 11.3 Neutrophils % 87.6 H D Lymphocytes % 6.5 L D Monocytes % 5.4 Eosinophils % 0.0 D Basophils % 0.5 Nucleated RBC % 0 Sodium 137 Potassium 3.5 Chloride 103 Carbon Dioxide 26 Anion Gap 8 BUN 22 H Creatinine 1.4 H Creat Clearance w eGFR 48.16 Random Glucose 90 Lactic Acid Calcium 7.8 L Total Bilirubin 0.5 D AST 20 ALT 17 Alkaline Phosphatase 83 D Total Protein 7.2 Albumin 2.6 L Urine Color Urine Appearance Urine pH Ur Specific Severance Urine Protein Urine Glucose (UA) Urine Ketones Urine Blood Urine Nitrite Urine Bilirubin Urine Urobilinogen Ur Leukocyte Esterase Urine WBC (Auto) Urine RBC (Auto) Hyaline Casts Urine Mucus Current Medications Acetaminophen (Tylenol -) 650 mg PO Q4H PRN PRN Reason: FEVER Amlodipine Besylate (Norvasc -) 5 mg PO DAILY [facility] Aspirin (Asa -) 81 mg PO DAILY [facility] Atenolol (Tenormin -) 25 mg PO DAILY [facility] Atorvastatin Calcium (Lipitor -) 40 mg PO HS [facility] Divalproex Sodium (Depakote *Er* -) 250 mg PO DAILY [facility] Finasteride (Proscar -) 5 mg PO DAILY [facility] Heparin Sodium (Porcine) (Heparin -) 5,000 unit SQ Q8H-IV [facility] Sodium Chloride (Normal Saline -) 1,000 mls @ 83 mls/hr IV ASDIR [facility] Meropenem 1 gm/ Dextrose 100 mls @ 200 mls/hr IVPB Q8H-IV [facility] Vancomycin HCl 1,000 mg/ (Dextrose) 250 mls @ 200 mls/hr IVPB Q24H [facility]; Protocol Non-Formulary Medication (Lisinopril [Prinivil -]) 40 mg PO DAILY [facility] Tamsulosin HCl (Flomax -) 0.8 mg PO DAILY [facility] Ambulatory Orders Amlodipine Besylate 5 mg PO DAILY 11/13/17 Lisinopril [Prinivil -] 40 mg PO DAILY 11/13/17 Atenolol [Tenormin -] 25 mg PO DAILY tablet 11/14/17 Donepezil HCl [Aricept] 5 mg PO DAILY 01/05/18 Finasteride [Proscar -] 5 mg PO DAILY 01/05/18 Tamsulosin HCl [Flomax -] 0.8 mg PO DAILY 01/05/18 Aspirin [ASA -] 81 mg PO DAILY tab.chew 01/22/18 Atorvastatin Ca [Lipitor] 40 mg PO HS tablet 01/22/18 Docusate Sodium [Colace -] 100 mg PO BID capsule 01/22/18 Divalproex *ER* [Depakote *ER* -] 250 mg PO DAILY 03/20/18 Hydrochlorothiazide 25 mg PO HS 03/20/18 ASSESSMENT/PLAN: Pt is an 87 yo M with PMHx of hypertension, PAD, HLD, BPH, 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 Sepsis secondary to PNA s/p chemotherapy Tmax 103, wbc-14.1, possible bibasilar infiltrates on CXR Pt has had a cough for over 3 weeks with failed outpt treatment with zpak We would treat for HCAP with risk for MDR having received antibiotics in past 90 days ID consulted- Dr Amaro- MESERET D/W him about peniciliin allergy in pt Meropenem 1g Q8H Vancomycin 1g daily Iv normal saline @83/hr tylenol PO regular diet Follow cx CT chest- R/O PNA hypertension Cont home , Lisinopril 40 mg PO DAILY Cont Atenolol [Tenormin -] 25 mg PO DAILY Cont Amlodipine Besylate 5 mg PO DAILY Hold HCTz- pt is being rehydrated PAD Stable, pulse 1- R LE HLD Cont atorvastatin BPH, Cont flomax, finasteride multiple CVAs Cont ASA, lipitor FEN 83/hr Monitor lytes Regular diet PPx-heparin Dispo: Admit Med surg Visit type - Emergency Visit Emergency Visit: Yes ED Registration Date: 03/20/18 Care time: The patient presented to the Emergency Department on the above date and was hospitalized for further evaluation of their emergent condition. - New Patient This patient is new to me today: Yes Date on this admission: 03/21/18 - Critical Care Critical Care patient: No Hospitalist Screening - Colonoscopy Questionnaire Colonoscopy Questionnaire: Colonoscopy Questionnaire - Patient: 50 - 75 years old and never had a screening colonoscopy: No History of colon or rectal polyps, or CA: Unknown History of IBD, Crohn's disease or UC: Unknown History of abdominal radiation therapy as a child: Unknown - Relative: 1 with colon or rectal CA, or polyps at age 60 or younger: Unknown Colon or rectal CA diagnosed at age 45 or younger: Unknown Multiple relatives with colon or rectal CA: Unknown - Outcome: Screening Result: Negative Screen
--- NOTE | 2018-03-21 00:09 | PN ---
Teaching Attending Note Name of Resident: Elba Malloy ATTENDING PHYSICIAN STATEMENT I saw and evaluated the patient. I reviewed the resident's note and discussed the case with the resident. I agree with the resident's findings and plan as documented. SUBJECTIVE: 87M recently diagnosed esophageal cancer started first session of chem complicated by fever, weakness, and hypoxia. he reports cough for past few weeks OBJECTIVE: Gen: NAD CV: RRR no m/r/g Lungs: decreased BS both bases WBC 12.8 Hgb 9.9 Cr 1.4 ASSESSMENT AND PLAN: Fevers, leukocytosis, in setting of esophageal cancer just initiated chemotherapy. Could be a fever related to chemotherapy agents (cisplatin paclitaxel) or Sepsis. given Cough, suspect PNA CT chest as CXR no definite infiltrates Vancomycin and Meropenem gentle IVF follow up cultures
[2018-03-21] MEDS: MEROPENEM 1 GM in DEXTROSE 5%-WATER 100 ML IVPB SCH ×3 (01:41→18:49)
[2018-03-21] MEDS: SODIUM CHLORIDE 1,000 ML IV SCH (01:41)
[2018-03-21] MEDS: ACETAMINOPHEN 325 MG TABLET (FP) PO PRN (02:12)
[2018-03-21] MEDS: HEPARIN NA (PORCINE) 5,000 UNITS/ML 1ML VIAL SQ SCH ×3 (05:50→22:30)
[2018-03-21 08:17] LABS: BASO % 0.3 % (0-2.0); EOS % 0.3 % (0-4.5); HEMATOCRIT 28.4 % (35.4-49); HEMOGLOBIN 9.6 GM/dL (11.7-16.9); LYMPH % 9.2 % (8-40); MCH 30.1 pg (25.7-33.7); MCHC 33.8 g/dl (32.0-35.9); MEAN PLT VOLUME 7.9 fl (7.5-11.1); MONO % 5.3 % (3.8-10.2); NEUT % 84.9 % (42.8-82.8); PLATELET COUNT 151 K/MM3 (134-434); RBC 3.19 M/mm3 (4.00-5.60); RDW 14.7 % (11.9-15.9); WHITE BLOOD COUNT 11.8 K/mm3 (4.0-10.0)
[2018-03-21 08:41] LABS: ALBUMIN 2.1 g/dl (3.4-5.0); ANION GAP 5 (8-16); BLOOD UREA NITROGEN 19 mg/dL (7-18); CALCIUM 7.7 mg/dL (8.5-10.1); CHLORIDE 107 mmol/L (98-107); CO2 28 mmol/L (21-32); GLUCOSE,RANDOM 87 mg/dL (74-106); MAGNESIUM 2.2 mg/dL (1.8-2.4); PHOSPHOROUS 2.9 mg/dL (2.5-4.9); POTASSIUM 3.4 mmol/L (3.5-5.1); SGOT/AST 16 U/L (15-37); SODIUM 140 mmol/L (136-145)
[2018-03-21 08:43] LABS: ALK PHOS 59 U/L (45-117); BILIRUBIN,TOTAL 0.6 mg/dL (0.2-1.0); CREATININE 1.3 mg/dL (0.7-1.3); SGPT/ALT 13 U/L (12-78); TOT PROT 5.8 g/dl (6.4-8.2)
[2018-03-21] MEDS: TAMSULOSIN HCL 0.4 MG CAP.ER.24H (FP) PO SCH (08:45)
--- NOTE | 2018-03-21 09:23 | EKG ---
Test Reason : Blood Pressure : / mmHG Vent. Rate : 064 BPM Atrial Rate : 064 BPM P-R Int : 178 ms QRS Dur : 072 ms QT Int : 430 ms P-R-T Axes : 092 004 059 degrees QTc Int : 443 ms NORMAL SINUS RHYTHM NONSPECIFIC ST ABNORMALITY ABNORMAL ECG WHEN COMPARED WITH ECG OF 19-JAN-2018 09:17, ST NO LONGER DEPRESSED IN ANTERIOR LEADS Confirmed by CARMINE DUBON, DI ([id number]) on 03/21/2018 9:22:31 AM Referred By: Confirmed By:DI LOU MD
[2018-03-21] MEDS ORDERED: FINASTERIDE 5 MG TABLET (FP) PO SCH (10:00)
[2018-03-21] MEDS ORDERED: LISINOPRIL 20 MG TABLET (FP) PO SCH ×2 (10:00→22:00)
[2018-03-21] MEDS ORDERED: DIVALPROEX NA *ER* EXTEND REL 250 MG TABLET.SA PO SCH (10:00)
[2018-03-21] MEDS ORDERED: PT OWN MED DRAWER 7, Y5N ONE ×2 (11:04→18:44)
[2018-03-21] MEDS: ASPIRIN 81 MG CHEWABLE TABLETS PO SCH (11:05)
[2018-03-21] MEDS: amLODIPine BESYLATE 5 MG TABLET (FP) PO SCH (11:06)
[2018-03-21] MEDS: ATENOLOL 25 MG TABLET (FP) PO SCH (11:06)
--- NOTE | 2018-03-21 11:32 | PN ---
Progress Note (short form) - Note Progress Note: ID consult dictated 87 year old man with recent diagnosis of esophageal ca, started chemo and RT on , RT friday, acute onset of chills/shakes at home came to ED , temp 103 pen allergy mouth swelling- apparently spoke with Dr Amaro and patient started on vanco/meropenem without difficulty has been on zpk recently has had chronic cough for months several admissions this year, most recent for CVA history from who is at bedside fever/chills/tmep 103 cough r/o pneumonia ?HAP pen allergy esophageal ca- recent chemo, now on RT agree with chest ct emil with current antibiotics vanco/ugo for HAP, aspiration? urinary antigens d/w at bedside Problem List - Problems (1) Fever Code(s): R50.9 - FEVER, UNSPECIFIED (2) Pneumonia Code(s): J18.9 - PNEUMONIA, UNSPECIFIED ORGANISM (3) Esophageal cancer Code(s): C15.9 - MALIGNANT NEOPLASM OF ESOPHAGUS, UNSPECIFIED (4) Penicillin allergy Code(s): Z88.0 - ALLERGY STATUS TO PENICILLIN
--- NOTE | 2018-03-21 12:49 | CONS ---
DATE OF CONSULTATION: DATE OF DICTATION: 03/21/2018 REQUESTING PHYSICIAN: Hospitalist Service. SYSTEMATIC THEOLOGY PROFESSOR: Joo Oseguera M.D. History was obtained from the patient and his who was at the bedside. This is an 87-year-old man. He and his live here in the community in the [facility] in [place]. He has a history of CVA in the past. He had a recent stroke in January 2018. He has had a persistent cough for the last several months. He was recently treated with a Z-Earl and given a nasal spray by about 2 weeks ago. He denies any nausea or vomiting. He was recently diagnosed with esophageal cancer. He was started on chemotherapy and radiation on and had another episode of radiation on Friday. He has urinary frequency but no dysuria. Yesterday, after he returned from radiation, he had an episode where he started shaking at home. He was brought to the emergency room where he had a fever of 103. He complains of constipation. He walks with a cane. He has some aphasia now secondary to his recent stroke. He was also noted to be hypoxic and needed oxygen in the ER. HE REPORTED A PENICILLIN ALLERGY MANIFESTED BY MOUTH SWELLING. Apparently, the ER spoke with Dr. Dove and he was given vancomycin and meropenem, which he tolerated well and is currently on both those antibiotics without any difficulties. PAST MEDICAL HISTORY: Notable for hypertension, peripheral arterial disease, hyperlipidemia, BPH, multiple CVAs. A recent diagnosis of gastric cancer was apparently made in January. SURGICAL HISTORY: Notable for appendectomy, left knee arthroscopy and prostate laser surgery for BPH. SOCIAL HISTORY: He lives with his in the [facility] and they are both independent there. 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 He stopped smoking about 3 years ago. History of social alcohol. ALLERGIES: PENICILLIN ALLERGY MANIFESTED BY SWELLING OF THE MOUTH ABOUT 20 YEARS AGO. MEDICATIONS: Amlodipine, lisinopril, Tenormin, Aricept, Proscar, milk of magnesia, tamsulosin, aspirin, atorvastatin, Depakote, Colace, Prinivil and hydrochlorothiazide. REVIEW OF SYSTEMS: Noted for constipation. There is chronic cough. He also has continued runny nose. He reports that he is able to eat but sometimes needs to wash his food down with water. PHYSICAL EXAMINATION: Vitals: His T-max was 103.3. Current temperature is 97.3, pulse is 61, blood pressure 126/53, respiratory rate is 20. He is saturating 94% on 2 L. HEENT: He is normocephalic. His eyes are anicteric. There is no thrush. Neck: Supple. Lungs: There are crackles at the bases. Heart: Regular rate and rhythm. Abdomen: Soft, nontender. Extremities: Without edema. Labs: Labs are notable for a white count yesterday of 12.8, with 11.8, hemoglobin is 9.6, platelets are 151. BUN is 19, creatinine 1.3 with normal LFTs and albumin of 2.1. Urinalysis was negative for leukocyte esterase and nitrites with less than one white cell. Sputum, blood cultures and urine cultures are pending. Chest X-Ray: There is a question of bibasilar infiltrates. In summary, this is an 87-year-old man with fevers, chills, temperature of 103, cough, possible pneumonia, PENICILLIN ALLERGY with esophageal cancer who just started chemotherapy and radiation therapy. I would agree with a chest CT. I would agree with the current antibiotics, as he appears to be tolerating them. I would obtain urinary antigens as well. I discussed the patient's care at length with his at the bedside. JOO OSEGUERA M.D. [id number]
[2018-03-21] MEDS: PSYLLIUM 5.85 GM PACKET PO SCH (15:10)
--- NOTE | 2018-03-21 15:37 | PN ---
Physical Exam: SUBJECTIVE: Patient seen and examined at the bedside. OBJECTIVE: Important phone numbers: [facility]: Philip Alston MD, radiation oncology [phone] office, fax Jonh Auguste LPN - nurse navigator Oncology, phone [phone] fax, cell [phone], office [phone] Haley, Oncology, phone no. [phone], fax Bilateral lower ext edema, noted, vascular study ordered. Vital Signs Period Temp Pulse Resp BP Sys/Eng Pulse Ox Last 24 Hr 97.3 F-103.3 F 61-85 17-20 108-147/53-67 93-96 GENERAL: The patient is awake, alert, and fully oriented, in no acute distress. HEAD: Normal with no signs of trauma. EYES: PERRL, extraocular movements intact, sclera anicteric, conjunctiva clear. No ptosis. ENT: Ears normal, nares patent, oropharynx clear without exudates, moist mucous membranes. NECK: Trachea midline, full range of motion, supple. LUNGS: Bilateral lungs with scattered rhonchi, non productive cough HEART: Regular rate and rhythm, S1, S2 without murmur, rub or gallop. ABDOMEN: Soft, nontender, nondistended, normoactive bowel sounds, no guarding, no rebound, no hepatosplenomegaly, no masses. EXTREMITIES:bilateral lower ext edema, non pitting, rule out dvt with vascular study NEUROLOGICAL: Normal speech, gait not observed. PSYCH: Normal mood, normal affect. SKIN: Warm, dry, normal turgor, no rashes or lesions noted Laboratory Results - last 24 hr 03/20/18 03/20/18 03/20/18 19:48 19:48 19:48 WBC 14.1 H D RBC 3.61 L Hgb 10.7 L D Hct 32.0 L D MCV 88.5 MCH 29.6 MCHC 33.4 RDW 14.6 Plt Count 213 D MPV 8.1 D Absolute Neuts (auto) Neutrophils % Lymphocytes % Monocytes % Eosinophils % Basophils % Nucleated RBC % Sodium Potassium Chloride Carbon Dioxide Anion Gap BUN Creatinine Creat Clearance w eGFR Random Glucose Lactic Acid 1.6 Calcium Phosphorus Magnesium Total Bilirubin AST ALT Alkaline Phosphatase Total Protein Albumin Urine Color Ltyellow Urine Appearance Clear Urine pH 6.0 Ur Specific [place] 1.013 Urine Protein 2+ H Urine Glucose (UA) Negative Urine Ketones Negative Urine Blood 1+ H Urine Nitrite Negative Urine Bilirubin Negative Urine Urobilinogen Negative Ur Leukocyte Esterase Negative Urine WBC (Auto) <1 Urine RBC (Auto) 2 Hyaline Casts 3 Urine Mucus Rare 03/20/18 03/20/18 03/21/18 20:00 20:28 07:45 WBC 12.8 H RBC 3.32 L Hgb 9.9 L Hct 29.5 L MCV 89.1 MCH 29.7 MCHC 33.4 RDW 14.6 Plt Count 184 MPV 7.9 Absolute Neuts (auto) 11.3 Neutrophils % 87.6 H D Lymphocytes % 6.5 L D Monocytes % 5.4 Eosinophils % 0.0 D Basophils % 0.5 Nucleated RBC % 0 Sodium 137 140 Potassium 3.5 3.4 L Chloride 103 107 Carbon Dioxide 26 28 Anion Gap 8 5 L BUN 22 H 19 H Creatinine 1.4 H 1.3 Creat Clearance w eGFR 48.16 52.47 Random Glucose 90 87 Lactic Acid Calcium 7.8 L 7.7 L Phosphorus 2.9 Magnesium 2.2 Total Bilirubin 0.5 D 0.6 AST 20 16 ALT 17 13 D Alkaline Phosphatase 83 D 59 D Total Protein 7.2 5.8 L Albumin 2.6 L 2.1 L Urine Color Urine Appearance Urine pH Ur Specific [place] Urine Protein Urine Glucose (UA) Urine Ketones Urine Blood Urine Nitrite Urine Bilirubin Urine Urobilinogen Ur Leukocyte Esterase Urine WBC (Auto) Urine RBC (Auto) Hyaline Casts Urine Mucus 03/21/18 07:45 WBC 11.8 H RBC 3.19 L Hgb 9.6 L Hct 28.4 L MCV 89.0 MCH 30.1 MCHC 33.8 RDW 14.7 Plt Count 151 MPV 7.9 Absolute Neuts (auto) 10.0 Neutrophils % 84.9 H Lymphocytes % 9.2 D Monocytes % 5.3 Eosinophils % 0.3 D Basophils % 0.3 Nucleated RBC % 0 Sodium Potassium Chloride Carbon Dioxide Anion Gap BUN Creatinine Creat Clearance w eGFR Random Glucose Lactic Acid Calcium Phosphorus Magnesium Total Bilirubin AST ALT Alkaline Phosphatase Total Protein Albumin Urine Color Urine Appearance Urine pH Ur Specific [place] Urine Protein Urine Glucose (UA) Urine Ketones Urine Blood Urine Nitrite Urine Bilirubin Urine Urobilinogen Ur Leukocyte Esterase Urine WBC (Auto) Urine RBC (Auto) Hyaline Casts Urine Mucus Active Medications Generic Name Dose Route Start Last Admin Trade Name [place] PRN Reason Stop Dose Admin Acetaminophen 650 mg 03/20/18 23:44 03/21/18 02:12 Tylenol - PO 650 mg Q4H PRN Administration FEVER Amlodipine Besylate 5 mg 03/21/18 10:00 03/21/18 11:06 Norvasc - PO 5 mg DAILY [facility] Administration Aspirin 81 mg 03/21/18 10:00 03/21/18 11:05 Asa - PO 81 mg DAILY [facility] Administration Atenolol 25 mg 03/21/18 10:00 03/21/18 11:06 Tenormin - PO 25 mg DAILY [facility] Administration Atorvastatin Calcium 40 mg 03/21/18 22:00 Lipitor - PO HS [facility] Divalproex Sodium 250 mg 03/21/18 22:00 Depakote *Er* - PO BID [facility] Finasteride 5 mg 03/21/18 22:00 Proscar - PO HS [facility] Heparin Sodium (Porcine) 5,000 unit 03/21/18 06:00 03/21/18 14:06 Heparin - SQ Not Given TID [facility] Sodium Chloride 1,000 mls @ 83 mls/hr 03/20/18 23:45 03/21/18 01:41 Normal Saline - IV 83 mls/hr ASDIR [facility] Administration Meropenem 1 gm/ Dextrose 100 mls @ 200 mls/hr 03/21/18 18:00 IVPB Q8H-IV [facility] Vancomycin HCl 1 gm in 200 mls @ 200 mls/hr 03/21/18 21:00 Vancomycin 1 Gm Premix - IVPB DAILY@2100 [facility] Protocol Lisinopril 40 mg 03/21/18 22:00 Prinivil PO HS [facility] Ipratropium [place] 2 each 03/21/18 22:00 Nasal [place] NS TID [facility] Psyllium Hydrophilic Mucilloid 5.85 gm 03/21/18 14:30 03/21/18 15:10 Metamucil (Sugar-Free) - PO 5.85 gm DAILY [facility] Administration Tamsulosin HCl 0.8 mg 03/21/18 08:30 03/21/18 08:45 Flomax - PO 0.8 mg DAILY@0830 [facility] Administration ASSESSMENT/PLAN: Pt is an 87 year old male with a past medical history of hyperlipidemia, BPH, multiple CVAs (, 1998, 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 He presented to the ED via ambulance for sudden weakness, fever and chills. In the ED his temp was 103 and was noted to have scattered rhonchi requiring supplemental oxygen. He was recently treated for persitent cough 3 weeks ago with a Zpack which he states he was compliant with. Patient was also receiving radiation on 03/19 chemotherapy on 03/20. ID: Sepsis in the setting of immunosuppression from recent chemotherapy/radiation History of gastroesophageal junction cancer Blood cultures, urine cultures sent and pending. On Meropenem, Vanco and IVF. WBC trending down. Monitor fever curve. Noted to be congested on exam with scattered rhonghi with non product cough. CT chest pending. Chest xray with bibasilar infiltrates. On 2 liters of oxygen, not home oxygen. Monitor labs, vitals signs. Rule out aspiration pneumonia. Swallow eval pending. Pulmonary consulted. AGATA, improving with ivf FEN NS @ 83 monitor lytes low sodium diet swallow eval ambulation heparin full code Visit type - Emergency Visit Emergency Visit: Yes ED Registration Date: 03/20/18 Care time: The patient presented to the Emergency Department on the above date and was hospitalized for further evaluation of their emergent condition. - New Patient This patient is new to me today: Yes Date on this admission: 03/21/18 - Critical Care Critical Care patient: No - Discharge Referral Referred to [facility] Med P.C.: No
[2018-03-21] MEDS ORDERED: MEROPENEM 1 GM in DEXTROSE 5%-WATER - 250 ML IVPB SCH (20:15)
[2018-03-21] MEDS ORDERED: MEROPENEM 1 GM in DEXTROSE 5%-WATER - 250 ML IVPB ONE (20:19)
[2018-03-21] MEDS ORDERED: VANCOMYCIN 1 GM PREMIX - 1 GM/200 ML BAG IVPB SCH (21:00)
[2018-03-21] MEDS: IPRATROPIUM BROMIDE NS SCH (22:31)
[2018-03-21] MEDS: FINASTERIDE 5 MG TABLET (FP) PO SCH (22:31)
[2018-03-21] MEDS: ATORVASTATIN CA 40 MG TABLET (FP) PO SCH (22:31)
[2018-03-22] MEDS: MEROPENEM 1 GM in DEXTROSE 5%-WATER 100 ML IVPB SCH ×3 (01:33→17:38)
[2018-03-22] MEDS: SODIUM CHLORIDE 1,000 ML IV SCH (01:33)
[2018-03-22] MEDS: IPRATROPIUM BROMIDE NS SCH ×3 (06:31→21:18)
[2018-03-22] MEDS: HEPARIN NA (PORCINE) 5,000 UNITS/ML 1ML VIAL SQ SCH (06:31)
[2018-03-22] MEDS ORDERED: DIVALPROEX NA *ER* EXTEND REL 250 MG TABLET.SA PO SCH ×2 (10:00→22:00)
[2018-03-22] MEDS: ATENOLOL 25 MG TABLET (FP) PO SCH (11:11)
[2018-03-22] MEDS: amLODIPine BESYLATE 5 MG TABLET (FP) PO SCH (11:11)
[2018-03-22] MEDS: ASPIRIN 81 MG CHEWABLE TABLETS PO SCH (11:11)
[2018-03-22] MEDS: TAMSULOSIN HCL 0.4 MG CAP.ER.24H (FP) PO SCH (11:11)
[2018-03-22] MEDS: PSYLLIUM 5.85 GM PACKET PO SCH (11:12)
--- NOTE | 2018-03-22 11:12 | CON.PULM ---
Consult Consult Specialty:: PULMONARY Referred by:: MAXX Reason for Consultation:: COUGH - History of Present Illness Chief Complaint: COUGH History of Present Illness: Mr Fuentes is an 87 yo M h/o HTN, HLD, multiple CVAs (1980s, 1998, and 01/2018), esophageal CA s/p recent chemo and xrt (yesterday) Pt presented to the ER with a complaint of fevers which began at 4:30pm on day of admission(+) fatigue, (+) cough x 2 weeks (non productive) No vomiting or diarrhea No dysuria No rash . Former smoker of 60 years, has a congested chronic cough no hemoptysis noted. 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 No: O2 Dependent, Pulmonary Embolus Gastrointestinal: Yes: Cancer (esophagus/gastric junction on chemotx/rt), Other (dysphagia) Hepatobiliary: No: Cirrhosis Renal/: No: Renal Failure Heme/Onc: Yes: Anemia, Current Chemotherapy, Current Radiation Therapy Infectious Disease: No: AIDS Psych: Yes: Depression Musculoskeletal: Yes: Hemiparesis - Alcohol/Substance Use Hx Alcohol Use: No - Smoking History Smoking history: Former smoker Have you smoked in the past 12 months: No If you are a former smoker, when did you quit?: 2012 - Social History Usual Living Arrangement: With Spouse ADL: Family Assistance History of Recent Travel: No Home Medications - Allergies Allergies/Adverse Reactions: Allergies Allergy/AdvReac Type Severity Reaction Status Date / Time Penicillins Allergy Swelling Verified 03/20/18 19:07 - Home Medications Home Medications: Ambulatory Orders Amlodipine Besylate 5 mg PO DAILY 11/13/17 Lisinopril [Prinivil -] 40 mg PO HS 11/13/17 Atenolol [Tenormin -] 25 mg PO DAILY tablet 11/14/17 Donepezil HCl [Aricept] 5 mg PO DAILY 01/05/18 Finasteride [Proscar -] 5 mg PO HS 01/05/18 Tamsulosin HCl [Flomax -] 0.8 mg PO DAILY 01/05/18 Aspirin [ASA -] 81 mg PO DAILY tab.chew 01/22/18 Atorvastatin Ca [Lipitor] 40 mg PO HS tablet 01/22/18 Docusate Sodium [Colace -] 100 mg PO BID capsule 01/22/18 Divalproex *ER* [Depakote *ER* -] 250 mg PO BID 03/20/18 Hydrochlorothiazide 25 mg PO HS 03/20/18 Ipratropium [place] 03/21/18 Family Disease History - Family Disease History Family History: Unremarkable Review of Systems - Review of Systems Constitutional: reports: Fever, Lethargy Eyes: denies: Blind Spots HENT: denies: Difficult Swallowing Neck: denies: Decreased ROM Cardiovascular: denies: Chest Pain Respiratory: reports: Cough. denies: Hemoptysis, Wheezing Gastrointestinal: denies: Abdominal Pain Genitourinary: reports: No Symptoms Physical Exam Vital Sings: Vital Signs Temperature 98.2 F 03/22/18 06:00 Pulse Rate 60 03/22/18 06:00 Respiratory Rate 18 03/22/18 06:00 Blood Pressure 130/58 03/22/18 06:00 O2 Sat by Pulse Oximetry (%) 94 L 03/21/18 21:00 Constitutional: Yes: Calm Eyes: Yes: EOM Intact HENT: Yes: Normocephalic Neck: Yes: Trachea Midline Cardiovascular: Yes: Regular Rate and Rhythm Respiratory: Yes: Diminished Gastrointestinal: Yes: Normal Bowel Sounds Edema: No Labs: CBC, BMP 03/21/18 07:45 03/21/18 07:45 Imaging - Results Chest X-ray: Report Reviewed, Image Reviewed Cat Scan: Image Reviewed Problem List - Problems (1) Esophageal cancer Code(s): C15.9 - MALIGNANT NEOPLASM OF ESOPHAGUS, UNSPECIFIED (2) Fever Code(s): R50.9 - FEVER, UNSPECIFIED (3) Penicillin allergy Code(s): Z88.0 - ALLERGY STATUS TO PENICILLIN (4) Pneumonia Code(s): J18.9 - PNEUMONIA, UNSPECIFIED ORGANISM (5) CVA, old, hemiparesis Code(s): I69.359 - HEMIPLGA FOLLOWING CEREBRAL INFARCTION AFFECTING UNSP SIDE Assessment/Plan GIVEN FINDINGS ON CT CHEST/CONGESTED COUGH/FEVER/LEUKOCYTOSIS WOULD TREAT FOR LEFT BASE INFILTRATE COPD NOT ON BRONCHODILATORS PRESENTLY ESOPHAGEAL CA ON CHEMO/RT 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
[2018-03-22] MEDS ORDERED: SODIUM CHLORIDE 1,000 ML IV SCH (13:01)
--- NOTE | 2018-03-22 13:11 | PN ---
Progress Note (short form) - Note Progress Note: Subjective: cont with cough and sputum production . No CP , nO OSB . Objective: Vital Signs: Last Vital Signs Temp Pulse Resp BP Pulse Ox 98.0 F 64 18 126/62 94 L 03/22/18 10:00 03/22/18 10:00 03/22/18 10:00 03/22/18 10:00 03/22/18 09:00 Physical Exam: NAD , AAOx3. slow speech , slurred at times CV: RRR, 2/6 SM at base , and 3/6 SM at apex . Lungs: rales at R base Ext 1+ edema ABd: sfot, NT < ND , NL BS Imaging: CT scan reviewed. report pending Assessment/Plan: unfortunate 87 y/o man with h/o gastric esophagealcancer , currently on chrmoa nd radiation , HTN, BPH and CVA who presented with fever and was found to have LLL PNA 1- LLL HCAP: in immunocompomised patient . doing well . no more fever . WBC improved . - cont meropenem and vanco - check vanco trough before 4th dose - await final read of CT scan 2- AGATA: cont IVF . decrease rate hold HCTZ 3- gatric esophageal cancer , recently started chemo and radiation . - chemo on hold due to infection . - has apt for radiation tomorrow - will contact his doctors at [facility] tomorrow to inform them of current problem and get advise on radiation treatment as family is nervous about it - Onc: Dr. Haley [phone] - Rad ONc : Dr. Alston : [phone] - Nurse Navigator Auguste : [phone] 4- h/o HTN: cont lisinopril( change to am dosing ) , norvasc , and BB . 5- h/o CVA : cont B , ASA ,and lipitor On Depakote. dose and type confirmed, will change 6- DVT px : change heparin to lovenox due to cancer Dispo : HLOC Meds were confirmed with Visit type - Emergency Visit Emergency Visit: Yes ED Registration Date: 03/20/18 Care time: The patient presented to the Emergency Department on the above date and was hospitalized for further evaluation of their emergent condition. - New Patient This patient is new to me today: Yes Date on this admission: 03/22/18 - Critical Care Critical Care patient: No
[2018-03-22 13:46] LABS: BASO % 0.3 % (0-2.0); EOS % 1.1 % (0-4.5); HEMATOCRIT 32.7 % (35.4-49); HEMOGLOBIN 10.8 GM/dL (11.7-16.9); LYMPH % 9.4 % (8-40); MCH 29.6 pg (25.7-33.7); MCHC 33.1 g/dl (32.0-35.9); MEAN CELL VOLUME 89.6 fl (80-96); MEAN PLT VOLUME 8.1 fl (7.5-11.1); MONO % 2.4 % (3.8-10.2); NEUT % 86.8 % (42.8-82.8); PLATELET COUNT 163 K/MM3 (134-434); RBC 3.65 M/mm3 (4.00-5.60); RDW 14.6 % (11.9-15.9); WHITE BLOOD COUNT 7.1 K/mm3 (4.0-10.0)
[2018-03-22] MEDS: ALBUTEROL SO4 2.5/IPRATROPIUM 0.5 INH SOL 3 ML VIAL.NEB. NEB SCH ×2 (13:54→20:30)
[2018-03-22] MEDS: ENOXAPARIN NA (PORCINE) 40 MG/0.4 ML DISP.SYRIN SQ SCH (14:07)
[2018-03-22 14:23] LABS: ANION GAP 6 (8-16); BLOOD UREA NITROGEN 21 mg/dL (7-18); CALCIUM 7.9 mg/dL (8.5-10.1); CHLORIDE 103 mmol/L (98-107); CO2 29 mmol/L (21-32); CREATININE 1.2 mg/dL (0.7-1.3); GLUCOSE,RANDOM 171 mg/dL (74-106); POTASSIUM 3.4 mmol/L (3.5-5.1); SODIUM 138 mmol/L (136-145)
[2018-03-22] MEDS ORDERED: PT OWN MED DRAWER 7, Y5N ONE (17:37)
[2018-03-22] MEDS: FINASTERIDE 5 MG TABLET (FP) PO SCH (21:19)
[2018-03-22] MEDS: ATORVASTATIN CA 40 MG TABLET (FP) PO SCH (21:19)
[2018-03-22] MEDS: ACETAMINOPHEN 325 MG TABLET (FP) PO PRN (22:27)
[2018-03-23] MEDS: MEROPENEM 1 GM in DEXTROSE 5%-WATER 100 ML IVPB SCH ×2 (02:54→10:34)
[2018-03-23] MEDS: IPRATROPIUM BROMIDE NS SCH (06:26)
[2018-03-23] MEDS ORDERED: INSULIN (NOVOLOG) ASPART 100 UNITS/ML 10ML VIAL ONE (07:02)
[2018-03-23] MEDS ORDERED: INSULIN (LEVEMIR) 100 UNITS/ML UNITS SQ ONE (07:02)
[2018-03-23] MEDS ORDERED: PT OWN MED DRAWER 7, Y5N ONE ×2 (07:03→10:23)
[2018-03-23 07:25] LABS: EOS % 0.2 % (0-4.5); HEMATOCRIT 28.1 % (35.4-49); HEMOGLOBIN 9.6 GM/dL (11.7-16.9); LYMPH % 14.7 % (8-40); MCH 30.4 pg (25.7-33.7); MCHC 34.2 g/dl (32.0-35.9); MEAN PLT VOLUME 8.5 fl (7.5-11.1); MONO % 5.5 % (3.8-10.2); NEUT % 79.6 % (42.8-82.8); PLATELET COUNT 137 K/MM3 (134-434); RBC 3.16 M/mm3 (4.00-5.60); RDW 14.7 % (11.9-15.9); WHITE BLOOD COUNT 9.2 K/mm3 (4.0-10.0)
[2018-03-23] MEDS: ALBUTEROL SO4 2.5/IPRATROPIUM 0.5 INH SOL 3 ML VIAL.NEB. NEB SCH (07:41)
[2018-03-23 07:48] LABS: CHLORIDE 105 mmol/L (98-107); POTASSIUM 3.5 mmol/L (3.5-5.1); SODIUM 139 mmol/L (136-145)
[2018-03-23 08:06] LABS: ANION GAP 7 (8-16); BLOOD UREA NITROGEN 19 mg/dL (7-18); CALCIUM 7.7 mg/dL (8.5-10.1); CO2 27 mmol/L (21-32); CREATININE 1.2 mg/dL (0.7-1.3); GLUCOSE,RANDOM 103 mg/dL (74-106); MAGNESIUM 1.9 mg/dL (1.8-2.4); PHOSPHOROUS 2.2 mg/dL (2.5-4.9)
[2018-03-23] MEDS ORDERED: LISINOPRIL 20 MG TABLET (FP) PO SCH (10:00)
[2018-03-23] MEDS ORDERED: DONEPEZIL HCL 5 MG TABLET (FP) PO SCH (10:00)
[2018-03-23] MEDS ORDERED: NAPH,MB-DB/K PH,MBDB POWDER PACKET PO SCH (10:00)
[2018-03-23] MEDS ORDERED: DIVALPROEX SODIUM 250 MG TABLET E.C. PO SCH (10:00)
[2018-03-23] MEDS: TAMSULOSIN HCL 0.4 MG CAP.ER.24H (FP) PO SCH (10:28)
[2018-03-23] MEDS: ATENOLOL 25 MG TABLET (FP) PO SCH (10:29)
[2018-03-23] MEDS: ASPIRIN 81 MG CHEWABLE TABLETS PO SCH (10:29)
[2018-03-23] MEDS: amLODIPine BESYLATE 5 MG TABLET (FP) PO SCH (10:33)
[2018-03-23] MEDS: PSYLLIUM 5.85 GM PACKET PO SCH (10:34)
[2018-03-23] MEDS: ENOXAPARIN NA (PORCINE) 40 MG/0.4 ML DISP.SYRIN SQ SCH (10:34)
--- NOTE | 2018-03-23 12:23 | PN ---
Progress Note (short form) - Note Progress Note: feels well wants to go home coughing less temp now 97.7 Vital Signs Period Temp Pulse Resp BP Sys/Eng Pulse Ox Last 24 Hr 97.3 F-99.9 F 70-95 18-20 115-130/54-70 93-95 cor-rrr lungs clear abd soft,nt ext no edema CBC, BMP 03/23/18 06:20 03/23/18 06:[address]- small bibasilar infiltrates vs bronchiectasis with atelectasis Microbiology 03/21/18 02:25 Sputum - Aerosol Induced Gram Stain - Final 03/21/18 02:25 Sputum - Aerosol Induced Sputum Culture - Final Yeast Like Organism 03/20/18 19:48 Blood - Peripheral Venous Blood Culture - Preliminary NO GROWTH OBTAINED AFTER 48 HOURS, INCUBATION TO CONTINUE FOR 3 DAYS. 03/20/18 19:48 Blood - Peripheral Venous Blood Culture - Preliminary NO GROWTH OBTAINED AFTER 48 HOURS, INCUBATION TO CONTINUE FOR 3 DAYS. 03/20/18 19:48 Urine - Urine Clean Catch Urine Culture - Final NO GROWTH OBTAINED 03/20/18 13:47 Urine For Antigen Detection Legionella Antigen - Final 03/20/18 13:47 Urine For Antigen Detection Streptococcus pneumoniae Antigen (M - Final a/p doing well- low grade temp overnight but now afebrile-day #3 meropenem (due to pen allergy) he is anxious to resume radiation d/w hospitalist who will reach out to his oncologist to discuss pen allergy esophageal ca- recent chemo, now on RT d/w at bedside if he remains afebrile we can switch him to levaquin 500 mg daily to complete one week Problem List - Problems (1) Fever Code(s): R50.9 - FEVER, UNSPECIFIED (2) Pneumonia Code(s): J18.9 - PNEUMONIA, UNSPECIFIED ORGANISM (3) Esophageal cancer Code(s): C15.9 - MALIGNANT NEOPLASM OF ESOPHAGUS, UNSPECIFIED (4) Penicillin allergy Code(s): Z88.0 - ALLERGY STATUS TO PENICILLIN
--- NOTE | 2018-03-23 12:23 | PN ---
Progress Note (short form) - Note Progress Note: Subjective: The patient was seen and examined at the bedside, he reports feeling good. Expressive and receptive aphasia since CVA 01/19/18 Per , radiation was cancelled today Current Medications Generic Name Dose Route Start Last Admin Trade Name Freq PRN Reason Stop Dose Admin Acetaminophen 650 mg 03/20/18 23:44 03/22/18 22:27 Tylenol - PO 650 mg Q4H PRN Administration FEVER Albuterol/Ipratropium 1 amp 03/22/18 14:00 03/23/18 07:41 Duoneb - NEB 1 amp RTID [facility] Administration Amlodipine Besylate 5 mg 03/21/18 10:00 03/23/18 10:33 Norvasc - PO 5 mg DAILY [facility] Administration Aspirin 81 mg 03/21/18 10:00 03/23/18 10:29 Asa - PO 81 mg DAILY [facility] Administration Atenolol 25 mg 03/21/18 10:00 03/23/18 10:29 Tenormin - PO 25 mg DAILY [facility] Administration Atorvastatin Calcium 40 mg 03/21/18 22:00 03/22/18 21:19 Lipitor - PO 40 mg HS [facility] Administration Divalproex Sodium 250 mg 03/23/18 10:00 03/23/18 10:33 Depakote - PO 250 mg BID [facility] Administration Donepezil HCl 5 mg 03/23/18 10:00 03/23/18 10:32 Aricept - PO 5 mg DAILY [facility] Administration Enoxaparin Sodium 40 mg 03/22/18 13:00 03/23/18 10:34 Lovenox - SQ Not Given DAILY [facility] Finasteride 5 mg 03/21/18 22:00 03/22/18 21:19 Proscar - PO 5 mg HS [facility] Administration Meropenem 1 gm/ Dextrose 100 mls @ 200 mls/hr 03/21/18 18:00 03/23/18 10:34 IVPB 200 mls/hr Q8H-IV [facility] Administration Sodium Chloride 1,000 mls @ 50 mls/hr 03/22/18 13:01 03/22/18 14:07 Normal Saline - IV 50 mls/hr ASDIR [facility] Administration Lisinopril 40 mg 03/23/18 10:00 03/23/18 10:29 Prinivil PO 40 mg DAILY [facility] Administration Ipratropium [place] 2 each 03/21/18 22:00 03/23/18 06:26 Nasal [place] NS 2 each TID [facility] Administration Potassium Phos/Sodium Phos 1 packet 03/23/18 10:00 03/23/18 10:35 Phos-Nak Packet - PO 1 packet BID [facility] Administration Psyllium Hydrophilic Mucilloid 5.85 gm 03/21/18 14:30 03/23/18 10:34 Metamucil (Sugar-Free) - PO Not Given DAILY [facility] Tamsulosin HCl 0.8 mg 03/21/18 08:30 03/23/18 10:28 Flomax - PO 0.8 mg DAILY@0830 [facility] Administration Objective: Vital Signs Period Temp Pulse Resp BP Sys/Eng Pulse Ox Last 24 Hr 97.3 F-99.9 F 70-95 18-20 115-130/54-70 93-95 Physical Exam: General: NAD, expressive and receptive aphasia Lungs: CTA bilaterally Heart: RRR, S1S2 Abd: Soft, non-tender Ext: 1+ b/l lower extremity edema CBCD WBC 9.2 K/mm3 (4.0-10.0) 03/23/18 06:20 RBC 3.16 M/mm3 (4.00-5.60) L 03/23/18 06:20 Hgb 9.6 GM/dL (11.7-16.9) L D 03/23/18 06:20 Hct 28.1 % (35.4-49) L 03/23/18 06:20 MCV 89.0 fl (80-96) 03/23/18 06:20 MCHC 34.2 g/dl (32.0-35.9) 03/23/18 06:20 RDW 14.7 % (11.9-15.9) 03/23/18 06:20 Plt Count 137 K/MM3 (134-434) 03/23/18 06:20 MPV 8.5 fl (7.5-11.1) 03/23/18 06:20 CMP Sodium 139 mmol/L (136-145) 03/23/18 06:20 Potassium 3.5 mmol/L (3.5-5.1) 03/23/18 06:20 Chloride 105 mmol/L (98-107) 03/23/18 06:20 Carbon Dioxide 27 mmol/L (21-32) 03/23/18 06:20 Anion Gap 7 (8-16) L 03/23/18 06:20 BUN 19 mg/dL (7-18) H 03/23/18 06:20 Creatinine 1.2 mg/dL (0.7-1.3) 03/23/18 06:20 Creat Clearance w eGFR 57.54 (>60) 03/23/18 06:20 Random Glucose 103 mg/dL (74-106) D 03/23/18 06:20 Calcium 7.7 mg/dL (8.5-10.1) L 03/23/18 06:20 Total Bilirubin 0.6 mg/dL (0.2-1.0) 03/21/18 07:45 AST 16 U/L (15-37) 03/21/18 07:45 ALT 13 U/L (12-78) D 03/21/18 07:45 Alkaline Phosphatase 59 U/L (45-117) D 03/21/18 07:45 Total Protein 5.8 g/dl (6.4-8.2) L 03/21/18 07:45 Albumin 2.1 g/dl (3.4-5.0) L 03/21/18 07:45 Microbiology 03/21/18 02:25 Sputum - Aerosol Induced Gram Stain - Final 03/21/18 02:25 Sputum - Aerosol Induced Sputum Culture - Final Yeast Like Organism 03/20/18 19:48 Blood - Peripheral Venous Blood Culture - Preliminary NO GROWTH OBTAINED AFTER 48 HOURS, INCUBATION TO CONTINUE FOR 3 DAYS. 03/20/18 19:48 Blood - Peripheral Venous Blood Culture - Preliminary NO GROWTH OBTAINED AFTER 48 HOURS, INCUBATION TO CONTINUE FOR 3 DAYS. 03/20/18 19:48 Urine - Urine Clean Catch Urine Culture - Final NO GROWTH OBTAINED 03/20/18 13:47 Urine For Antigen Detection Legionella Antigen - Final 03/20/18 13:47 Urine For Antigen Detection Streptococcus pneumoniae Antigen (M - Final Assessment: This is an 87 year old male with PMHx of HTN, BPH, CVA, gastric esophageal cancer (currently on chemo and radiation), who presented to the ED with fever and rigors. Plan: 1) LLL HCAP - Patient is immunocompromised - Chest CT with new patchy LLL infiltrate. Possible small early RLL infiltrate - Continue Meropenem - Low grade temps overnight - Discussed with Dr. Yeung, likely discharge tomorrow morning 2) AGATA - Resolved 3) Gastric esophageal cancer - Chemo on hold due to infection - Daily radiation, cancelled today session - Awaiting call back from Dr. Alston to discuss infection and recommendations for radiation 4) F/E/N: - Hypophosphatemia: replete - Regular diet - Monitor electrolytes 5) Prophylaxis: - Lovenox 40mg sq daily 6) Dispo: - Requires continued inpatient care CODE STATUS: FULL CODE Visit type - Emergency Visit Emergency Visit: Yes ED Registration Date: 03/20/18 Care time: The patient presented to the Emergency Department on the above date and was hospitalized for further evaluation of their emergent condition. - New Patient This patient is new to me today: Yes Date on this admission: 03/23/18 - Critical Care Critical Care patient: No
--- NOTE | 2018-03-23 13:14 | PN ---
Progress Note, Physician History of Present Illness: PULMONARY ALERT,OOB-CHAIR,FEELING BETTER,-SOB,-COUGH - Current Medication List Current Medications: Active Medications Acetaminophen (Tylenol -) 650 mg PO Q4H PRN PRN Reason: FEVER Last Admin: 03/22/18 22:27 Dose: 650 mg Albuterol/Ipratropium (Duoneb -) 1 amp NEB RTID [facility] Last Admin: 03/23/18 07:41 Dose: 1 amp Amlodipine Besylate (Norvasc -) 5 mg PO DAILY [facility] Last Admin: 03/23/18 10:33 Dose: 5 mg Aspirin (Asa -) 81 mg PO DAILY [facility] Last Admin: 03/23/18 10:29 Dose: 81 mg Atenolol (Tenormin -) 25 mg PO DAILY [facility] Last Admin: 03/23/18 10:29 Dose: 25 mg Atorvastatin Calcium (Lipitor -) 40 mg PO HS [facility] Last Admin: 03/22/18 21:19 Dose: 40 mg Divalproex Sodium (Depakote -) 250 mg PO BID [facility] Last Admin: 03/23/18 10:33 Dose: 250 mg Donepezil HCl (Aricept -) 5 mg PO DAILY [facility] Last Admin: 03/23/18 10:32 Dose: 5 mg Enoxaparin Sodium (Lovenox -) 40 mg SQ DAILY [facility] Last Admin: 03/23/18 10:34 Dose: Not Given Finasteride (Proscar -) 5 mg PO HS [facility] Last Admin: 03/22/18 21:19 Dose: 5 mg Meropenem 1 gm/ Dextrose 100 mls @ 200 mls/hr IVPB Q8H-IV [facility] Last Admin: 03/23/18 10:34 Dose: 200 mls/hr Sodium Chloride (Normal Saline -) 1,000 mls @ 50 mls/hr IV ASDIR [facility] Last Admin: 03/22/18 14:07 Dose: 50 mls/hr Lisinopril (Prinivil) 40 mg PO DAILY [facility] Last Admin: 03/23/18 10:29 Dose: 40 mg Ipratropium [place] ([place]al [place]) 2 each NS TID [facility] Last Admin: 03/23/18 06:26 Dose: 2 each Potassium Phos/Sodium Phos (Phos-Nak Packet -) 1 packet PO BID [facility] Last Admin: 03/23/18 10:35 Dose: 1 packet Psyllium Hydrophilic Mucilloid (Metamucil (Sugar-Free) -) 5.85 gm PO DAILY [facility] Last Admin: 03/23/18 10:34 Dose: Not Given Tamsulosin HCl (Flomax -) 0.8 mg PO DAILY@0830 [facility] Last Admin: 03/23/18 10:28 Dose: 0.8 mg - Objective Vital Signs: Vital Signs Temperature 97.3 F L 03/23/18 08:59 Pulse Rate 88 03/23/18 08:59 Respiratory Rate 18 03/23/18 08:59 Blood Pressure 119/55 03/23/18 08:59 O2 Sat by Pulse Oximetry (%) 95 03/23/18 09:42 Constitutional: Yes: Well Nourished, Calm Eyes: Yes: WNL HENT: Yes: WNL Neck: Yes: WNL Cardiovascular: Yes: Regular Rate and Rhythm, S1, S2 Respiratory: Yes: CTA Bilaterally Gastrointestinal: Yes: Normal Bowel Sounds, Soft Extremities: Yes: WNL Edema: No Labs: CBC, BMP 03/23/18 06:20 03/23/18 06:20 - ....Imaging Cat Scan: Report Reviewed Assessment/Plan Problem List - Problems (1) Esophageal cancer Code(s): C15.9 - MALIGNANT NEOPLASM OF ESOPHAGUS, UNSPECIFIED (2) Fever Code(s): R50.9 - FEVER, UNSPECIFIED (3) Penicillin allergy Code(s): Z88.0 - ALLERGY STATUS TO PENICILLIN (4) Pneumonia Code(s): J18.9 - PNEUMONIA, UNSPECIFIED ORGANISM (5) CVA, old, hemiparesis Code(s): I69.359 - HEMIPLGA FOLLOWING CEREBRAL INFARCTION AFFECTING UNSP SIDE Assessment/Plan GIVEN FINDINGS ON CT CHEST/CONGESTED COUGH/FEVER/LEUKOCYTOSIS WOULD TREAT FOR LEFT BASE INFILTRATE COPD ESOPHAGEAL CA ON CHEMO/RT MULTIPLE CVA'S WITH APHASIA AND DYSARTHRIC SPEECH ANTIBIOTICS PER ID INHALED BRONCHODILATORS CHEST PT DR VIDAL
[2018-03-23 14:30] VITALS: BP 99/48; PULSE 60; TEMP 97.9
--- NOTE | 2018-03-23 15:20 | DS ---
Physical Examination Vital Signs: Vital Signs Temperature 97.9 F 03/23/18 14:30 Pulse Rate 60 03/23/18 14:30 Respiratory Rate 16 03/23/18 14:30 Blood Pressure 99/48 03/23/18 14:30 O2 Sat by Pulse Oximetry (%) 95 03/23/18 09:42 Labs: CBC, BMP 03/23/18 06:20 03/23/18 06:20 Discharge Summary Reason For Visit: FEVER Current Active Problems Esophageal cancer (Acute) Fever (Acute) Penicillin allergy (Acute) Pneumonia (Acute) Condition: Improved - Instructions Diet, Activity, Other Instructions: Mr. Fuentes, Please return to the ED with new, persistent, or worsening symptoms. Please follow-up with providers as scheduled. Please follow-up with your oncologist within 2-3 days. Please report to your scheduled radiation with Dr. Alston tomorrow (03/24/18) . You MUST bring your chest CT disc and report to Dr. Alston's office tomorrow. Referrals: Malissa Seaman MD [Primary Care Provider] - 1 Week Sari Yeung MD [Staff Physician] - 1 Week Disposition: HOME - Home Medications Comprehensive Discharge Medication List: Ambulatory Orders RX: Amlodipine Besylate 5 mg PO DAILY 11/13/17 RX: Lisinopril [Prinivil -] 40 mg PO DAILY 11/13/17 RX: Atenolol [Tenormin -] 25 mg PO DAILY tablet 11/14/17 RX: Donepezil HCl [Aricept] 5 mg PO DAILY 01/05/18 RX: Finasteride [Proscar -] 5 mg PO HS 01/05/18 RX: Tamsulosin HCl [Flomax -] 0.8 mg PO HS 01/05/18 RX: Aspirin [ASA -] 81 mg PO DAILY tab.chew 01/22/18 RX: Atorvastatin Ca [Lipitor] 40 mg PO HS tablet 01/22/18 RX: Hydrochlorothiazide 25 mg PO DAILY 03/20/18 RX: Divalproex [Depakote -] 250 mg PO BID 03/22/18 Levofloxacin [Levaquin] 500 mg PO DAILY #7 tablet 03/23/18 RX: Acetaminophen [Tylenol .Regular Strength -] 650 mg PO Q4H PRN tablet RX: Albuterol 2.5/Ipratropium 0.5 [Duoneb -] 1 amp NEB RTID PRN #90 amp RX: Nebulizer [Aeroeclipse II] 1 each ASDIR PRN #1 each 03/23/18 - Discharge Referral Referred to [facility] No
[2018-03-23 15:41] VITALS: BMI 23.3
== END 2018-03-23 16:32 | disposition home or self-care (01) | DRG 871 ==
LOC: JER 19:05 → JERBED 21:30 → J5S 22:46
PROVIDERS: ADMIT Internal Medicine; ATTEND Registered Nurse
DX: A41.9 Sepsis, unspecified organism (principal); J18.9 Pneumonia, unspecified organism; I69.351 Hemiplegia and hemiparesis following cerebral infarction affecting right dominant side; C15.9 Malignant neoplasm of esophagus, unspecified; R47.01 Aphasia; N17.9 Acute kidney failure, unspecified; J98.11 Atelectasis; I10 Essential (primary) hypertension; E78.5 Hyperlipidemia, unspecified; I73.9 Peripheral vascular disease, unspecified; J47.9 Bronchiectasis, uncomplicated; E83.39 Other disorders of phosphorus metabolism; N40.0 Benign prostatic hyperplasia without lower urinary tract symptoms; R47.1 Dysarthria and anarthria; D72.829 Elevated white blood cell count, unspecified; J44.9 Chronic obstructive pulmonary disease, unspecified; R09.02 Hypoxemia; D64.9 Anemia, unspecified; Z87.891 Personal history of nicotine dependence; Z88.0 Allergy status to penicillin
CPT/HCPCS: 36415; 71045-TC-FY; 71250-TC; 80048; 80053; 81003; 81015; 83605; 83735; 84100; 85025; 85027; 87040; 87070; 87086; 87205; 87899; 93005; 93010; 93970-TC; 94640; 97116-GP; 97161-GP; 99284-25; J0131; J7030; J7620